=== PATIENT | female | born 1950 | race Caucasian/White ===

== ENCOUNTER → 2016-12-18 | Outpatient (CLI) | payer MEDICARE, OTHER ==
[2016-12-18 08:33] LABS: ABSOLUTE BASOPHILS # (AUTO) 0.1 10^3/uL (0.0-0.2); ABSOLUTE EOSINOPHILS # (AUTO) 0.2 10^3/uL (0.0-0.6); ABSOLUTE LYMPHOCYTES (AUTO) 3.4 10^3/uL (0.5-4.7); ABSOLUTE MONOCYTES (AUTO) 1.1 10^3/uL (0.1-1.4); ABSOLUTE NEUT (AUTO) 5.1 10^3/uL (1.7-8.2); BASOPHILS % (AUTO) 0.6 % (0-2); EOSINOPHILS % (AUTO) 1.8 % (0-6); LYMPHOCYTES % (AUTO) 34.6 % (13-45); MEAN CORPUSCULAR HEMOGLOBIN 28.6 pg (27.0-33.4); MEAN CORPUSCULAR HGB CONC 32.5 g/dL (32.0-36.0); MEAN CORPUSCULAR VOLUME 88 fl (80-97); MONOCYTES % (AUTO) 10.9 % (3-13); RED BLOOD COUNT 4.89 10^6/uL (3.72-5.28); RED CELL DISTRIBUTION WIDTH 13.3 % (11.5-14.0); SEGMENTED NEUTROPHILS % (AUTO) 52.1 % (42-78); WHITE BLOOD COUNT 9.7 10^3/uL (4.0-10.5)
[2016-12-18 08:43] LABS: ALANINE AMINOTRANSFERASE 31 U/L (9-52); ALBUMIN 4.5 g/dL (3.5-5.0); ALKALINE PHOSPHATASE 78 U/L (38-126); ANION GAP 11 (5-19); ASPARTATE AMINO TRANSFERASE 22 U/L (14-36); BILIRUBIN,TOTAL 0.5 mg/dL (0.2-1.3); BLOOD UREA NITROGEN 15 mg/dL (7-20); CALCIUM 9.6 mg/dL (8.4-10.2); CARBON DIOXIDE 29 mmol/L (22-30); CHLORIDE 102 mmol/L (98-107); CHOLESTEROL 150.53 mg/dL (0-200); CREATININE RESULT 0.88 mg/dL (0.52-1.25); Direct HDL 48 mg/dL (>40); GLUCOSE 96 mg/dL (75-110); POTASSIUM 4.5 mmol/L (3.6-5.0); SODIUM 142.1 mmol/L (137-145); TOTAL PROTEIN 7.5 g/dL (6.3-8.2); TRIGLYCERIDES 140 mg/dL (<150)
[2016-12-18 08:54] LABS: DIRECT LDL 88 mg/dL (<100); FREE T3 3.69 pg/mL (2.77-5.27)
[2016-12-18 09:07] LABS: THYROID STIMULATING HORMONE 6.7 uIU/mL (0.47-4.68)
== END ==
LOC: OD 07:32
PROVIDERS: ATTEND Family Medicine
DX: Z13.6 Encounter for screening for cardiovascular disorders (principal); Z13.1 Encounter for screening for diabetes mellitus; R73.9 Hyperglycemia, unspecified; E03.9 Hypothyroidism, unspecified; J45.40 Moderate persistent asthma, uncomplicated; E55.9 Vitamin D deficiency, unspecified; Z79.899 Other long term (current) drug therapy
CPT/HCPCS: 36415; 80048; 80061; 80076; 82306; 83036; 84439; 84443; 84481; 85025

== ENCOUNTER → 2017-01-06 | Outpatient (CLI) | payer MEDICARE, OTHER | LOC: WI 09:23 | PROVIDERS: ATTEND Family Medicine | DX: Z12.31 Encounter for screening mammogram for malignant neoplasm of breast (principal); M81.0 Age-related osteoporosis without current pathological fracture | CPT/HCPCS: 77063; 77080; G0202; 77067 ==

== ENCOUNTER 2017-02-06 06:33 | Day surgery (SDC) | payer MEDICARE, OTHER ==
[2017-02-06] MEDS ORDERED: LIDOCAINE 0.5% INJ-PF (5 MG/ML) 50 ML SDV ONE (07:10)
[2017-02-06] MEDS ORDERED: GLYCOPYRROLATE INJ 0.4 MG/2 ML VIAL ONE (07:27)
[2017-02-06] MEDS ORDERED: ONDANSETRON HCL INJ/PF 4 MG/2 ML SDV ONE (07:27)
[2017-02-06] MEDS ORDERED: NALOXONE HCL INJ/PF 0.4 MG/1 ML SDV ONE (07:27)
[2017-02-06] MEDS ORDERED: PROMETHAZINE HCL INJ 25 MG/1 ML VIAL ONE (07:27)
[2017-02-06] MEDS ORDERED: GLUCAGON,HUMAN RECOMB 1 MG INJ ONE (07:28)
[2017-02-06] MEDS ORDERED: FLUMAZENIL INJ 0.5 MG/5 ML VIAL IV ONE (07:28)
[2017-02-06] MEDS ORDERED: EPINEPHRINE INJ 1 MG/10 ML DISP.SYRIN ONE (07:28)
[2017-02-06] MEDS: MIDAZOLAM 2 MG/2 ML INJ ONE ×4 (07:44→08:10)
[2017-02-06] MEDS: FENTANYL CITRATE INJ/PF 100 MCG/2 ML AMPUL ONE ×5 (07:46→08:18)
--- NOTE | 2017-02-06 08:34 | Operative Report ---
Operative Report DATE OF SURGERY: 02/06/17 PREOPERATIVE DIAGNOSIS: Need for screening colonoscopy POSTOPERATIVE DIAGNOSIS: Same; sigmoid diverticulosis OPERATION: Total colonoscopy to cecum SURGEON: LISBET SOLARES ANESTHESIA: Moderate Sedation TISSUE REMOVED OR ALTERED: None COMPLICATIONS: None ESTIMATED BLOOD LOSS: none INTRAOPERATIVE FINDINGS: See below PROCEDURE: Obtaining informed consent the patient was taken from the preoperative holding area to the main endoscopy suite where monitoring devices were attached to the patient. Plan and surgical timeout were conducted The patient was placed in the left lateral decubitus position with knees to chest. A perianal examination was performed. There was no visible or palpable anorectal pathology. Sphincter tone was felt to be normal. The flexible adult colonoscope was advanced through the anal rectal canal, but could not be advanced beyond the sigmoid colon due to significant curvature of the colon. Therefore the scope was removed to surgery; with much manipulation, we were able to advance the scope all the way to the cecum. Utilization of the cecum was achieved and the ileocecal valve, the appendiceal orifice and transillumination of the anterior abdominal wall. This was an excellent study on the well-prepped bowel. The colonoscope was withdrawn slowly and methodically checked and the mucosa carefully. There was no evidence of tumor, stricture, bleeding or polyp. There were diverticuloses in the sigmoid colon but no stricture. It was minimal bruising secondary to scope pressure but no evidence of mucosal injury. The scope was slowly withdrawn through the anal rectal canal. Complete visualization of the rectum was achieved with photodocumentation. The scope was withdrawn to the patient's anus. The patient tolerated the procedure well and was taken to the recovery area in stable condition. For surveillance guidelines, patient will be a candidate for a follow-up colonoscopy in 10 years as she is at average risk for colorectal cancer
--- NOTE | 2017-02-06 08:35 | PDOC DISCHARGE SUMMARY ---
Discharge Summary (SDC) - Discharge Final Diagnosis: Sigmoid diverticulosis Date of Surgery: 02/06/17 Discharge Date: 02/06/17 Condition: Good Treatment or Instructions: [facility] [place] [address] POST ENDOSCOPY DISCHARGE INSTRUCTIONS 1. Diet: Start clear liquids that a regular diet as tolerated. 2. Resume all preoperative medications. All oral anticoagulants and aspirins can be resumed 24 hours after procedure. 3. If a polypectomy was performed some bleeding per rectum may occur. This should stop within 3 days. If not, please contact the office. 4. If you had a colonoscopy you may experience some bloating and delayed return of normal bowel function for several days, your regular bowel movement pattern should resume within a week. 5. Please contact [facility] at to make an appointment with Dr. Weldon for 1 to 3 weeks following procedure. 6. If you have any questions or concerns regarding your care,treatment plan or follow up, please contact our office. 7. Per clinical guidelines we recommend you undergo a repeat colonoscopy in 10 years. Discharge Diet: As Tolerated Discharge Activity: Activity As Tolerated Home Care Assistance: None Needed Report the Following to Your Physician Immediately: Shortness of Breath, Increase in Pain, Fever over 101 Degrees
[2017-02-06 09:43] VITALS: BP 113/89
== END 2017-02-06 09:35 | disposition home or self-care (01) ==
LOC: END 06:33
PROVIDERS: ATTEND Surgery
PROC: 0DJD8ZZ Inspection of Lower Intestinal Tract, Via Natural or Artificial Opening Endoscopic (ICD-10-PCS; principal; 2017-02-06 07:30)
DX: Z12.11 Encounter for screening for malignant neoplasm of colon (principal); K57.30 Diverticulosis of large intestine without perforation or abscess without bleeding; E78.00 Pure hypercholesterolemia, unspecified; E03.9 Hypothyroidism, unspecified; F17.210 Nicotine dependence, cigarettes, uncomplicated; Z79.899 Other long term (current) drug therapy; Z88.5 Allergy status to narcotic agent; Z79.82 Long term (current) use of aspirin; Z79.51 Long term (current) use of inhaled steroids
CPT/HCPCS: G0121; J2250; J3010; J3490; J2405; 45378; J0171; J1610; J2310; J2550

== ENCOUNTER → 2017-03-18 | Outpatient (CLI) | payer MEDICARE, OTHER ==
--- NOTE | 2017-03-18 12:51 | XCELERA REPORT ---
[address] [address] Lower Extremity Arterial Evaluation Name: KAMARI MENDOZA Age: 66 yrs Gender: Female : 1950 Patient Status: Outpatient Patient Location: Study Date: 03/18/2017 10:10 AM Procedure: A color flow and duplex scan of the lower extremity arteries was performed bilaterally with velocity and waveform anaylsis. Reason For Study: PVD Ordering Physician: REYNA MACHADO Performed By: Latonya Gomez Measurements and Calculations Right Left SUSTAINABILITY SPECIALIST PSV 135.1 98.1 cm/sec Prox PFA PSV -73.9 -137.6 cm/sec Prox SFA PSV -111.3 94.3 cm/sec Mid SFA PSV -87.7 -96.4 cm/sec Dist SFA PSV -88.6 -111.0 cm/sec Prox Pop A PSV 55.9 64.5 cm/sec Prox JANES PSV 45.4 108.6 cm/sec Mid JANES PSV -33.9 80.0 cm/sec Dist JANES PSV 100.4 cm/sec Prox PASSENGER RELATIONS REPRESENTATIVE PSV 40.7 35.2 cm/sec Dist PASSENGER RELATIONS REPRESENTATIVE PSV 27.4 cm/sec Dist Madelaine A PSV 48.3 59.7 cm/sec Chilango Pedis PSV 157.2 84.9 cm/sec Right Side Arterial Evaluation Normal velocity and triphasic waveforms noted from the Common Femoral artery to the Popliteal artery . Monophasic in the distal Posterior Tibial artery. Occluded Anterior Tibial artery with triphasic reconstitution in the Dorsalis Pedis artery. 50-99 % stenosis at the Posterior Tibial artery. Ankle Brachial index is 1.08. Left Side Arterial Evaluation Normal velocity and triphasic waveforms noted from the Common Femoral artery to the Popliteal artery . Monophasic in the mid Posterior Tibial artery, occluded distally. Biphasic Anterior tibial artery. 20-49 % stenosis at the Anterior Tibial artery. Occluded Posterior Tibial artery. Ankle Brachial index is 1.08. Interpretation Summary Moderate hemodynamically significant lesions in the bilateral lower extremities, on duplex imaging, at rest. Unusual pattern with functional problems at the infrageniculate level, good collateral compensation. : REYNA MACHADO > Justen Jane
== END ==
LOC: SP 09:46
PROVIDERS: ATTEND Family Medicine
DX: I73.9 Peripheral vascular disease, unspecified (principal); E03.9 Hypothyroidism, unspecified; E55.9 Vitamin D deficiency, unspecified
CPT/HCPCS: 36415; 82306; 84443; 93925

== ENCOUNTER → 2017-04-04 | Outpatient (CLI) | payer MEDICARE, OTHER | LOC: RAD 10:23 | PROVIDERS: ATTEND Family Medicine | DX: F17.210 Nicotine dependence, cigarettes, uncomplicated (principal) | CPT/HCPCS: G0297 ==

== ENCOUNTER 2017-05-08 08:28 | Day surgery (SDC) | payer MEDICARE, OTHER ==
[~2017-05-08 08:28] MED LIST: NALOXONE HCL INJ/PF 0.4 MG/1 ML SDV ONE; ONDANSETRON HCL INJ/PF 4 MG/2 ML SDV ONE
[2017-05-08] MEDS ORDERED: EPINEPHRINE INJ 1 MG/10 ML DISP.SYRIN ONE ×2 (08:29→09:23)
[2017-05-08] MEDS ORDERED: GLUCAGON,HUMAN RECOMB 1 MG INJ ONE ×2 (08:29→09:23)
[2017-05-08] MEDS ORDERED: FLUMAZENIL INJ 0.5 MG/5 ML VIAL IV ONE ×2 (08:29→09:22)
[2017-05-08] MEDS ORDERED: MIDAZOLAM 2 MG/2 ML INJ ONE ×2 (08:29)
[2017-05-08] MEDS ORDERED: FENTANYL CITRATE INJ/PF 100 MCG/2 ML AMPUL ONE ×2 (08:29→09:22)
[2017-05-08] MEDS ORDERED: LIDOCAINE 1% INJ-PF (10 MG/ML) 30 ML SDV ONE (09:12)
[2017-05-08] MEDS ORDERED: DIPHENHYDRAMINE HCL 50 MG/ML VIAL ONE (09:19)
[2017-05-08] MEDS ORDERED: ONDANSETRON HCL INJ/PF 4 MG/2 ML SDV ONE (09:20)
[2017-05-08] MEDS ORDERED: NALOXONE HCL INJ/PF 0.4 MG/1 ML SDV ONE (09:20)
[2017-05-08] MEDS: MIDAZOLAM 2 MG/2 ML INJ ONE ×2 (10:05→10:15)
--- NOTE | 2017-05-08 10:29 | Operative Report ---
Operative Report DATE OF SURGERY: 05/08/17 PREOPERATIVE DIAGNOSIS: Dysphasia; heartburn POSTOPERATIVE DIAGNOSIS: Same; mild chronic gastritis: Small hiatal hernia OPERATION: 1. Esophagogastroduodenoscopy. 2. Mucosal biopsies of the gastric antrum, and GE junction SURGEON: LISBET SOLARES ANESTHESIA: Moderate Sedation TISSUE REMOVED OR ALTERED: Mucosa biopsy COMPLICATIONS: None ESTIMATED BLOOD LOSS: Scant INTRAOPERATIVE FINDINGS: See below PROCEDURE: Source taken from the preop holding area on the fifth floor at [facility] to the main endoscopy suite where she is placed in the semirecumbent position, or mouthpiece inserted monitoring devices attached an appropriate level of sedation induced. Surgical plan and surgical timeout conducted. The flexible adult upper endoscope was advanced through the hypopharynx down the esophagus through the stomach into the duodenum. Well tolerated by the patient. The duodenum was normal in the first and second portions. Scope was brought back through the pylorus which was essentially normal. No evidence of stricture or irregularity. The stomach lining was patent and whitish in areas consistent with chronic gastritis, mild. There was no evidence of tumor stricture bleeding retained gastric contents. A random biopsy of the gastric antrum was obtained for CAMI testing The scope was retroflexed in the stomach and a good look at the GE junction obtained. There was a small hiatal hernia. Photos obtained. The scope was brought back through in a antegrade fashion through the GE junction which is at approximately 36 cm from the incisor. Photos were taken of the Z line which had only mild irregularity. A biopsy of the Z line was obtained. This was sent for histology. There was no evidence of stricture ulcer or varix or any other pathology in the esophagus scope was withdrawn to patient's oropharynx. She tolerated the procedure well.
--- NOTE | 2017-05-08 10:30 | PDOC DISCHARGE SUMMARY ---
Discharge Summary (SDC) - Discharge Final Diagnosis: 1. Mild chronic gastritis 2 small hiatal hernia Date of Surgery: 05/08/17 Discharge Date: 05/08/17 Condition: Good Treatment or Instructions: [facility] [address] [address] POST ENDOSCOPY DISCHARGE INSTRUCTIONS 1. Diet: Start clear liquids that a regular diet as tolerated. 2. Resume all preoperative medications. All oral anticoagulants and aspirins can be resumed 24 hours after procedure. 3. If a polypectomy was performed some bleeding per rectum may occur. This should stop within 3 days. If not, please contact the office. 4. If you had a colonoscopy you may experience some bloating and delayed return of normal bowel function for several days, your regular bowel movement pattern should resume within a week. 5. Please contact [facility] at to make an appointment with Dr. Weldon for 1 to 3 weeks following procedure. 6. If you have any questions or concerns regarding your care,treatment plan or follow up, please contact our office. Discharge Diet: As Tolerated Discharge Activity: Activity As Tolerated Home Care Assistance: None Needed Report the Following to Your Physician Immediately: Shortness of Breath, Increase in Pain, Fever over 101 Degrees
[2017-05-08 11:34] VITALS: BP 104/65
== END 2017-05-08 11:30 | disposition home or self-care (01) ==
LOC: END 08:28
PROVIDERS: ATTEND Surgery
PROC: 0DB38ZX Excision of Lower Esophagus, Via Natural or Artificial Opening Endoscopic, Diagnostic (ICD-10-PCS; 2017-05-08)
PROC: 0DB68ZX Excision of Stomach, Via Natural or Artificial Opening Endoscopic, Diagnostic (ICD-10-PCS; principal; 2017-05-08 09:00)
DX: K29.50 Unspecified chronic gastritis without bleeding (principal); K44.9 Diaphragmatic hernia without obstruction or gangrene; K21.9 Gastro-esophageal reflux disease without esophagitis; Z80.0 Family history of malignant neoplasm of digestive organs; E78.00 Pure hypercholesterolemia, unspecified; E03.9 Hypothyroidism, unspecified; F17.210 Nicotine dependence, cigarettes, uncomplicated; Z88.5 Allergy status to narcotic agent; Z79.899 Other long term (current) drug therapy
CPT/HCPCS: 43239; 88342 ×2; 88305 ×2; J2250; J3010; J3490; J0171; J1200; J1610; J2310; J2405

== ENCOUNTER → 2017-06-07 | Outpatient (CLI) | payer MEDICARE, OTHER ==
--- NOTE | 2017-06-07 09:46 | RADIOLOGY REPORT (SQ) ---
EXAM DESCRIPTION: MRI LUMBAR SPINE WITHOUT COMPLETED DATE/TIME: 06/07/2017 9:17 am REASON FOR STUDY: RADICULOPATHY LUMBAR REGION M54.16 RADICULOPATHY, LUMBAR REGION COMPARISON: 2016. Radiographs from today. TECHNIQUE: Sagittal and Axial imaging includes T1, T2, STIR and gradient echo sequences. Coronal T2/ HASTE imaging. LIMITATIONS: None. FINDINGS: VISUALIZED UPPER ABDOMEN: No acute or suspicious findings appreciated. Focal ectasia of t he infrarenal aorta, slight aneurysm which measures 2.5 cm maximally. SEGMENTATION: No transitional anatomy. The lowest well-developed disc space is labeled L5-S1. ALIGNMENT: Anatomic. VERTEBRAE: Intact. BONE MARROW: Endplate edema at L4-5. No marrow replacement or suspicious bone lesion. Fatty endplat e changes at several other levels. DISC SIGNAL: Decreased signal and height at L4-5 and L5-S1. Otherwise decreased signal throughout. POSTERIOR ELEMENTS: No pars defect. Facet degenerative overgrowth. HARDWARE: None in the spine. CORD AND CONUS: Normal in size and signal intensity. Conus at the appropriate level. SOFT TISSUES: As above. No retroperitoneal adenopathy detected. No paraspinal mass or fluid. L1-L2: No significant spinal stenosis or exit foraminal stenosis. L2-L3: No significant spinal stenosis or exit foraminal stenosis. L3-L4: Bilateral noncritical foraminal narrowing. L4-L5: Disc bulge with superimposed broad central protrusion flattening the ventral thecal sac. Post erior element overgrowth. Moderate central narrowing. Moderate-marked left foraminal stenosis. L5-S1: Broad disc bulge with mild osteophytes. Mild right lateral recess stenosis. LOWER THORACIC: Spondylosis without cord compression. Limited assessment. SACRUM: Visualized upper sacrum intact. OTHER: No other significant findings. IMPRESSION: 1. Multilevel lumbar spondylosis, disc and facet disease as above. Most pronounced at t he L4-5 level where there is moderate central narrowing and reactive endplate edema. No fracture or worrisome bone lesion. TECHNICAL DOCUMENTATION: JOB ID: [id number] [employer]- All Rights Reserved
--- NOTE | 2017-06-07 09:47 | RADIOLOGY REPORT (SQ) ---
EXAM DESCRIPTION: L SPINE 2 VIEWS COMPLETED DATE/TIME: 06/07/2017 9:17 am REASON FOR STUDY: SPONDYLOLISTHESIS COMPARISON: MRI from today. FINDINGS: Two views, 3 images of the lumbar spine are obtained for correlation with MRI to day. See separate MRI report. Mild complex left curve in the spine. Alignment otherwise looks normal. TECHNICAL DOCUMENTATION: JOB ID: [id number]
== END ==
LOC: RAD 08:22
PROVIDERS: ATTEND Family Medicine
DX: M54.16 Radiculopathy, lumbar region (principal); M43.16 Spondylolisthesis, lumbar region
CPT/HCPCS: 72100; 72148

== ENCOUNTER → 2017-07-24 | Outpatient (CLI) | payer MEDICARE, OTHER ==
--- NOTE | 2017-07-24 10:18 | RADIOLOGY REPORT (SQ) ---
EXAM DESCRIPTION: WRIST RIGHT 3 VIEWS COMPLETED DATE/TIME: 07/24/2017 9:50 am REASON FOR STUDY: PAIN IN RIGHT WRIST (M25.531) M25.531 PAIN IN RIGHT WRIST COMPARISON: None. NUMBER OF VIEWS: Three views. TECHNIQUE: AP, lateral, and oblique radiographic images acquired of the right wrist. LIMITATIONS: None. FINDINGS: MINERALIZATION: Osteopenia. BONES: No acute fracture dislocation. The scaphoid has been resected. SOFT TISSUES: No soft tissue swelling. No foreign body. OTHER: No other significant finding. IMPRESSION: The scaphoid is been resected. No acute abnormality is seen in the wrist. TECHNICAL DOCUMENTATION: JOB ID: [id number] [employer]- All Rights Reserved
== END ==
LOC: RAD 08:43
PROVIDERS: ATTEND Family Medicine
DX: M25.531 Pain in right wrist (principal)

== ENCOUNTER → 2018-01-12 | Outpatient (CLI) | payer MEDICARE, OTHER ==
--- NOTE | 2018-01-13 09:15 | WOMENS IMAGING REPORT ---
EXAM DESCRIPTION: 3D SCREENING MAMMO BILAT COMPLETED DATE/TIME: 01/12/2018 2:11 pm REASON FOR STUDY: ROUTINE SCREENING; Z12.31 Z12.31 ENCNTR SCREEN MAMMOGRAM FOR MALIGNANT NEOPLASM O F NISREEN COMPARISON: 2011 to 2016 TECHNIQUE: Standard craniocaudal and mediolateral oblique views of each breast recorded using digita l acquisition and breast tomosynthesis. LIMITATIONS: None. FINDINGS: No masses, calcifications or architectural distortion. No areas of suspicion. Read with the assistance of CAD. .[facility] - R2 Cenova Version 1.3 .[facility] - R2 Cenova Version 1.3 .[facility] - R2 Cenova Version 2.4 .[facility] [place] R2 Cenova Version 2.4 .[facility] - R2 Physician Interventional Cardiologist Version 9.2 IMPRESSION: NORMAL MAMMOGRAM. BIRADS 1. BREAST DENSITY: a. The breasts are almost entirely fatty. BIRAD: 1 NEGATIVE RECOMMENDATION: ROUTINE SCREENING COMMENT: The patient has been notified of the results by letter per SA requirements. Additional no tification policies are in place for contacting patient with suspicious or incomplete findings. Quality ID #[id number]: The [employer] recommends an annual screening mammogram for women aged 40 years or over. This facility utilizes a reminder system to ensure that all patients receive reminder letters, and/or direct phone calls for appointments. This includes reminders for routine scr eening mammograms, diagnostic mammograms, or other Breast Imaging Interventions when appropriate. Th is patient will be placed in the appropriate reminder system. The [employer] (ACR) has developed recommendations for screening MRI of the breast s in certain patient populations, to be used in conjunction with mammography. Breast MRI surveillanc e may be appropriate for women with more than 20% lifetime risk of developing breast cancer as deter mined by genetic testing, significant family history of the disease, or history of mantle radiation f or Hodgkins Disease. ACR Practice Guidelines 2008. DBT Technology DBT is a type of tomographic mammography. With conventional mammography, overlapping breast tissue ma y make lesions difficult to detect, even with good compression. DBT uses an x-ray tube that rotates a round the breast, taking images at different angles. These images are then combined to create thin sl ices of the breast that the radiologist can view as a 3D reconstruction. The [employer] unit can perform full-field digital mammograms (2D imaging); or DBT (3D imaging); or both, in a combination mode that quickly performs both the mammogram and the tomosynthesis scan while the breast is still compressed. PQRS 6045F: Fluoroscopic imaging is not utilized for breast tomosynthesis. TECHNICAL DOCUMENTATION: FINDING NUMBER: (1) ASSESSMENT: (1) JOB ID: [id number] [employer]- All Rights Reserved
== END ==
LOC: WI 14:00
PROVIDERS: ATTEND Family Medicine
DX: Z12.31 Encounter for screening mammogram for malignant neoplasm of breast (principal)
CPT/HCPCS: 77063; 77067

== ENCOUNTER → 2018-03-27 | Outpatient (CLI) | payer MEDICARE, OTHER ==
--- NOTE | 2018-03-27 08:34 | RADIOLOGY REPORT (SQ) ---
EXAM DESCRIPTION: MRI RT LOWER JOINT WITHOUT COMPLETED DATE/TIME: 03/27/2018 7:59 am REASON FOR STUDY: CHRONIC INSTABILITY OF KNEE, RIGHT (M23.51) M23.51 CHRONIC INSTABILITY OF KNEE, R IGHT KNEE COMPARISON: None. TECHNIQUE: Rightknee images acquired and stored on PACS. Multiplanar images include fat sensitive s equences as T1, water sensitive sequences as FST2 or STIR, cartilage sensitive sequences as FSPD, and gradient echo sequences. LIMITATIONS: None. FINDINGS: JOINT AND BURSAE: No effusion. BONE CORTEX AND MARROW: No alteration of signal to suggest marrow replacement. No worrisome bone lesi ons. No occult fracture. ACL: Intact. No degeneration or ganglion cyst. PCL: The proximal half of the posterior cruciate ligament is diffusely thickened and high in signal, is torn at its proximal attachment along the femur. This is best shown on sagittal image 12 and linda nal images 12 through 19. MCL: Intact. No periligamentous edema or fluid. LCL: Intact. No periligamentous edema or fluid. MEDIAL MENISCUS: No tears. No abnormal signal. LATERAL MENISCUS: No tears. No abnormal signal. MEDIAL COMPARTMENT: Cartilage preserved. No bone bruises or reactive marrow edema. No osteophytes. LATERAL COMPARTMENT: Cartilage preserved. No bone bruises or reactive marrow edema. No osteophytes. PATELLA: There is diffuse high-grade patellar chondromalacia. No subchondral cysts. Medial and latera l retinacula intact. EXTENSOR MECHANISM: Intact. Quadriceps and patella tendons normal. SOFT TISSUES: Adjacent muscles and subcutaneous tissues normal. Normal flow void in popliteal artery and vein. OTHER: No other significant finding. IMPRESSION: Torn proximal attachment posterior cruciate ligament High-grade chondromalacia patella TECHNICAL DOCUMENTATION: JOB ID: [id number] [employer]- All Rights Reserved Reading location - IP/workstation name: [facility]-[email or web address]
== END ==
LOC: RAD 07:05
PROVIDERS: ATTEND Family Medicine
DX: M23.51 Chronic instability of knee, right knee (principal); M22.41 Chondromalacia patellae, right knee

== ENCOUNTER → 2018-04-06 | Outpatient (CLI) | payer MEDICARE, OTHER ==
[2018-04-06 09:21] LABS: ABSOLUTE EOSINOPHILS # (AUTO) 0.1 10^3/uL (0.0-0.6); ABSOLUTE LYMPHOCYTES (AUTO) 3.3 10^3/uL (0.5-4.7); ABSOLUTE MONOCYTES (AUTO) 0.7 10^3/uL (0.1-1.4); ABSOLUTE NEUT (AUTO) 4.7 10^3/uL (1.7-8.2); BASOPHILS % (AUTO) 0.5 % (0-2); EOSINOPHILS % (AUTO) 1.4 % (0-6); HEMATOCRIT 42.1 % (36.0-47.0); HEMOGLOBIN 14.1 g/dL (12.0-15.5); LYMPHOCYTES % (AUTO) 37.2 % (13-45); MEAN CORPUSCULAR HEMOGLOBIN 29.7 pg (27.0-33.4); MEAN CORPUSCULAR HGB CONC 33.5 g/dL (32.0-36.0); MEAN CORPUSCULAR VOLUME 89 fl (80-97); MONOCYTES % (AUTO) 8.3 % (3-13); PLATELET COUNT 253 10^3/uL (150-450); RED BLOOD COUNT 4.76 10^6/uL (3.72-5.28); RED CELL DISTRIBUTION WIDTH 13.7 % (11.5-14.0); SEGMENTED NEUTROPHILS % (AUTO) 52.6 % (42-78); TOTAL CELLS COUNTED % (AUTO) 100 %; WHITE BLOOD COUNT 8.9 10^3/uL (4.0-10.5)
[2018-04-06 09:52] LABS: ALANINE AMINOTRANSFERASE 30 U/L (9-52); ALBUMIN 4.2 g/dL (3.5-5.0); ALKALINE PHOSPHATASE 71 U/L (38-126); ANION GAP 10 (5-19); ASPARTATE AMINO TRANSFERASE 22 U/L (14-36); BILIRUBIN,DIRECT 0.3 mg/dL (0.0-0.4); BILIRUBIN,TOTAL 0.3 mg/dL (0.2-1.3); BLOOD UREA NITROGEN 18 mg/dL (7-20); CALCIUM 9.5 mg/dL (8.4-10.2); CARBON DIOXIDE 29 mmol/L (22-30); CHLORIDE 106 mmol/L (98-107); CHOLESTEROL 136.71 mg/dL (0-200); GLUCOSE 100 mg/dL (75-110); POTASSIUM 4.3 mmol/L (3.6-5.0); TOTAL PROTEIN 7.2 g/dL (6.3-8.2); TRIGLYCERIDES 138 mg/dL (<150)
[2018-04-06 10:04] LABS: DIRECT LDL 70 mg/dL (<100)
[2018-04-06 10:09] LABS: FREE T3 3.33 pg/mL (2.77-5.27); FREE T4 (FREE THYROXINE) 1.17 ng/dL (0.78-2.19)
[2018-04-06 10:22] LABS: THYROID STIMULATING HORMONE 1.5 uIU/mL (0.47-4.68)
[2018-04-07 07:42] LABS: HEPATITIS C VIRUS AB <0.1 s/co ratio (0.0-0.9)
== END ==
LOC: OD 08:14
PROVIDERS: ATTEND Family Medicine
DX: L68.0 Hirsutism (principal); R73.9 Hyperglycemia, unspecified; E78.5 Hyperlipidemia, unspecified; E03.9 Hypothyroidism, unspecified; Z11.59 Encounter for screening for other viral diseases; E55.9 Vitamin D deficiency, unspecified; Z79.899 Other long term (current) drug therapy; M62.838 Other muscle spasm
CPT/HCPCS: 36415; 80053; 80061; 82306; 82533; 82627; 83036; 83735; 84403; 84439; 84443; 84481; 85025; 86803; 86804

== ENCOUNTER → 2018-04-06 | Outpatient (CLI) | payer MEDICARE, OTHER ==
--- NOTE | 2018-04-06 16:54 | RADIOLOGY REPORT (SQ) ---
EXAM DESCRIPTION: CT LUNG CANCER SCREENING COMPLETED DATE/TIME: 04/06/2018 9:38 am REASON FOR STUDY: Z87.891 PERSONAL HISTORY OF NICOTINE DEPENDENCE Z87.891 PERSONAL HISTORY OF NICOT INE DEPENDENCE Has the patient had a Chest CT scan within the past year? Was the patient offered tobacco cessation counseling? Was the patient engaged in shared decision making for this test? Does the patient have signs or symptoms of Lung Cancer? Is the patient a smoker? How many packs per year? How many years since quitting smoking? Patients age: COMPARISON: None. TECHNIQUE: Low Dose CT scan performed of the chest without intravenous contrast for purposes of scre ening for lung cancer. Images reviewed with lung, soft tissue and bone windows. Reconstructed coron al and sagittal MPR images reviewed. All images stored on PACS. All CT scanners at this facility use dose modulation, iterative reconstruction, and/or weight based d osing when appropriate to reduce radiation dose to as low as reasonably achievable (ALARA). [facility]: Dose Right [facility]: CareDose [facility]: Dose Right [facility]: Teradose 4D [facility]: CardioDx RADIATION DOSE: mGy. . LIMITATIONS: No technical limitations. FINDINGS: LUNGS AND PLEURA: No masses or nodules. No pleural effusions or calcifications. No pne umothorax. Small area of opacity left lower lobe with tree-in-bud appearance. This suggests inflam mation/infection. HILAR AND MEDIASTINAL STRUCTURES: No identified masses. No abnormal nodes. HEART AND VASCULAR STRUCTURES: No aortic aneurysm. No pericardial effusion. No cardiac devices. CORONARY ARTERY CALCIFICATIONS: No significant calcifications. UPPER ABDOMEN: No significant findings. THYROID AND OTHER SOFT TISSUES: No masses. No adenopathy. BONES: No significant finding. OTHER: No other significant findings. IMPRESSION: PROBABLY BENIGN FINDINGS IN THE LUNGS. NO OTHER CLINICALLY SIGNIFICANT/POTENTIALLY CLINICALLY SIGNIFICANT FINDINGS LUNGRADS: LUNGRADS: 3, PROBABLY BENIGN. PROBABLY BENIGN FINDING(S)- SHORT TERM FOLLOW UP SUGGESTED; INCLUDES NODULES WITH A LOW LIKELIHOOD OF BECOMING A CLINICALLY ACTIVE CANCER. MODIFIER: NONE. RECOMMENDATION: Followup LDCT in 3 months. COMMENT: CRITERIA: Solid nodule(s): ? 6 mm to < 8 mm at baseline OR new 4 mm to < 6 mm. Part solid nodule(s): ? 6 mm total diameter with solid component < 6 mm OR new < 6 mm total diameter . Non solid nodule(s) (GGN): ? [address] or new. TECHNICAL DOCUMENTATION: JOB ID: [id number] Quality ID # [id number]: Final reports with documentation of one or more dose reduction techniques (e.g., Au tomated exposure control, adjustment of the mA and/or kV according to patient size, use of iterative reconstruction technique) 2010 [facility] Radiology Reading location - IP/workstation name: [email or web address] [id number]
== END ==
LOC: RAD 10:11
PROVIDERS: ATTEND Internal Medicine
DX: Z87.891 Personal history of nicotine dependence (principal)
CPT/HCPCS: G0297

== ENCOUNTER → 2018-05-15 | Outpatient (CLI) | payer MEDICARE, OTHER ==
--- NOTE | 2018-05-15 14:44 | RADIOLOGY REPORT (SQ) ---
EXAM DESCRIPTION: ANKLE RIGHT COMPLETE COMPLETED DATE/TIME: 05/15/2018 2:35 pm REASON FOR STUDY: M25.571 PAIN IN RIGHT ANKLE AND JOINTS OF RIGHT FOOT COMPARISON: None. NUMBER OF VIEWS: Three views. TECHNIQUE: AP, lateral, and oblique radiographic images acquired of the right ankle. LIMITATIONS: None. FINDINGS: MINERALIZATION: Normal. BONES: Calcaneal spurs. Hold tibial fracture. No acute fracture or dislocation. JOINTS: No effusions. SOFT TISSUES: No soft tissue swelling. No foreign body. OTHER: No other significant finding. IMPRESSION: Calcaneal spurs. Old tibial fracture. No acute abnormality. TECHNICAL DOCUMENTATION: JOB ID: [id number] [employer]- All Rights Reserved Reading location - IP/workstation name: [email or web address]
--- NOTE | 2018-05-15 14:48 | RADIOLOGY REPORT (SQ) ---
EXAM DESCRIPTION: FOOT RIGHT COMPLETE COMPLETED DATE/TIME: 05/15/2018 2:35 pm REASON FOR STUDY: M25.571 PAIN IN RIGHT ANKLE AND JOINTS OF RIGHT FOOT COMPARISON: None. NUMBER OF VIEWS: Three views. TECHNIQUE: AP, lateral and oblique radiographic images acquired of the right foot. LIMITATIONS: None. FINDINGS: MINERALIZATION: Normal. BONES: Calcaneal spurs. No acute fracture or dislocation. JOINTS: No effusions. SOFT TISSUES: No soft tissue swelling. No foreign body. OTHER: No other significant finding. IMPRESSION: Calcaneal spurs. No acute abnormality. TECHNICAL DOCUMENTATION: JOB ID: [id number] [employer]- All Rights Reserved Reading location - IP/workstation name: [email or web address]
== END ==
LOC: OD 14:15
PROVIDERS: ATTEND Family Medicine
DX: M25.571 Pain in right ankle and joints of right foot (principal)

== ENCOUNTER 2018-05-27 15:50 | Emergency (ER) | payer MEDICARE, OTHER ==
[2018-05-27 16:17] VITALS: BP 111/70
--- NOTE | 2018-05-27 17:31 | RADIOLOGY REPORT (SQ) ---
EXAM DESCRIPTION: FOOT RIGHT COMPLETE COMPLETED DATE/TIME: 05/27/2018 5:21 pm REASON FOR STUDY: multiple injuries and pain COMPARISON: 05/15/2018 NUMBER OF VIEWS: Three views. TECHNIQUE: AP, lateral and oblique radiographic images acquired of the right foot. LIMITATIONS: None. FINDINGS: MINERALIZATION: Normal. BONES: No acute fracture or dislocation. No worrisome bone lesions. JOINTS: No effusions. SOFT TISSUES: No soft tissue swelling. No foreign body. OTHER: No other significant finding. IMPRESSION: NEGATIVE STUDY OF THE RIGHT FOOT. NO RADIOGRAPHIC EVIDENCE OF ACUTE INJURY. TECHNICAL DOCUMENTATION: JOB ID: [id number] [employer]- All Rights Reserved Reading location - IP/workstation name: [email or web address]
--- NOTE | 2018-05-27 17:32 | RADIOLOGY REPORT (SQ) ---
EXAM DESCRIPTION: ANKLE RIGHT COMPLETE COMPLETED DATE/TIME: 05/27/2018 5:21 pm REASON FOR STUDY: multiple injuries and pain COMPARISON: None. NUMBER OF VIEWS: Three views. TECHNIQUE: AP, lateral, and oblique radiographic images acquired of the right ankle. LIMITATIONS: None. FINDINGS: MINERALIZATION: Normal. BONES: No acute fracture or dislocation. No worrisome bone lesions. JOINTS: No effusions. SOFT TISSUES: No soft tissue swelling. No foreign body. OTHER: No other significant finding. IMPRESSION: NEGATIVE STUDY OF THE RIGHT ANKLE. NO RADIOGRAPHIC EVIDENCE OF ACUTE INJURY. TECHNICAL DOCUMENTATION: JOB ID: [id number] [employer]- All Rights Reserved Reading location - IP/workstation name: [email or web address]
--- NOTE | 2018-05-27 17:32 | RADIOLOGY REPORT (SQ) ---
EXAM DESCRIPTION: TIBIA FIBULA RIGHT COMPLETED DATE/TIME: 05/27/2018 5:21 pm REASON FOR STUDY: multiple injuries and pain COMPARISON: None. NUMBER OF VIEWS: Two views. TECHNIQUE: Two radiographic images acquired of the right tibia and fibula to include the knee and an kle in at least one projection. LIMITATIONS: None. FINDINGS: MINERALIZATION: Normal. BONES: No acute fracture or dislocation. No worrisome bone lesions. Old posttraumatic changes of th e tibia. SOFT TISSUES: No obvious swelling or foreign body. OTHER: No other significant finding. IMPRESSION: NEGATIVE STUDY OF THE RIGHT TIBIA AND FIBULA. NO RADIOGRAPHIC EVIDENCE OF ACUTE INJURY. TECHNICAL DOCUMENTATION: JOB ID: [id number] [employer]- All Rights Reserved Reading location - IP/workstation name: [email or web address]
--- NOTE | 2018-05-27 17:41 | ER Document Report ---
ED Extremity Problem, Lower - General Chief Complaint: Ankle Pain Stated Complaint: FOOT/ANKLE PAIN Time Seen by Provider: 05/27/18 17:00 Mode of Arrival: Wheelchair Information source: Patient Notes: 67-year-old female presented ED for complaint of pain swelling and bruising to the right foot ankle and lower leg. She states 2 weeks ago she had pain in her right foot and had a x-ray and it was negative. States a week ago she was trying to climb a ladder and slipped injuring her leg and then it was several days before she could walk on the foot. Today she states she turned her ankle but she is not sure exactly what she did but she felt a snap in the ankle and the pain is been progressively worse all day. She states she stood and she almost fell. She cannot bear any weight on this foot or ankle and she knows it is broken. Patient is alert and oriented speaking in full sentences and respirations are regular and unlabored. TRAVEL OUTSIDE OF THE [place] IN LAST 30 DAYS: No - HPI Patient complains to provider of: Injury, Pain, Swelling Location: Ankle, Foot, Leg Occurred: Other - First pain was 2 weeks ago then injured a week ago and then today she stepped wrong on it and thinks she turned Where: Home Onset/Duration: Gradual Quality of pain: Sharp, Throbbing Severity: Moderate Pain Level: 4 Context: Fell, Twisted Recent injury: Yes Associated symptoms: Painful ambulation Exacerbated by: Hanging down, Movement, Walking Relieved by: Elevation, Ice, Rest - Related Data Allergies/Adverse Reactions: alendronate sodium [From Fosamax] Allergy (Severe, Verified 05/27/18 15:52) CHEST PAIN, PALPITATION pentazocine lactate [From Talwin] Allergy (Unknown, Verified 05/27/18 15:52) codeine [Codeine] Allergy (Verified 05/27/18 15:52) HEADACHE Past Medical History - General Information source: Patient - Social History Smoking Status: Never Smoker Cigarette use (# per day): No Chew tobacco use (# tins/day): No Smoking Education Provided: No - Has to go to your heart since late abdominal stickers degenerative take the Frequency of alcohol use: None Drug Abuse: None Lives with: Family Family History: Reviewed & Not Pertinent Patient has suicidal ideation: No Patient has homicidal ideation: No - Past Medical History Cardiac Medical History: Reports: Hx Coronary Artery Disease - STRESS TEST 2016 - REPORTS NORMAL FINDINGS, Hx Hypercholesterolemia, Hx Peripheral Vascular Disease - Patient had left carotid endarterectomy and continues to smoke heavily Pulmonary Medical History: Reports: Hx Asthma - ON MEDICATIONS, Hx Pneumonia - MULTIPLE TIMES Neurological Medical History: Reports: None Endocrine Medical History: Reports: None Renal/ Medical History: Reports: None Malignancy Medical History: Reports: None GI Medical History: Reports: Hx Gastroesophageal Reflux Disease, Hx Ulcer - YRS AGO Musculoskeltal Medical History: Reports Hx Arthritis - RIGHT WRIST (R/T OLD MISSED FX), Reports Hx Musculoskeletal Deformity, Reports Hx Musculoskeletal Trauma Skin Medical History: Reports None Psychiatric Medical History: Reports: None Traumatic Medical History: Reports: None Infectious Medical History: Reports: None Past Surgical History: Reports: Hx Appendectomy, Hx Hysterectomy, Hx Orthopedic Surgery - right hand navicular resection, left elbow, back, Hx Vascular Surgery - Left carotid endarterectomy - Immunizations Hx Diphtheria, Pertussis, Tetanus Vaccination: Yes Review of Systems - Review of Systems Constitutional: No symptoms reported EENT: No symptoms reported Cardiovascular: No symptoms reported Respiratory: No symptoms reported Gastrointestinal: No symptoms reported Genitourinary: No symptoms reported Female Genitourinary: No symptoms reported Musculoskeletal: Ankle swelling - Pain swelling and some bruising to the ankle Skin: No symptoms reported Hematologic/Lymphatic: No symptoms reported Neurological/Psychological: No symptoms reported Physical Exam - Vital signs Vitals: Temp Pulse Resp BP Pulse Ox 97.7 F 77 20 111/70 96 05/27/18 16:16 05/27/18 16:16 05/27/18 16:16 05/27/18 16:16 05/27/18 16:16 Interpretation: Normal - General General appearance: Appears well, Alert - HEENT Head: Normocephalic, Atraumatic Eyes: Normal Pupils: PERRL - Respiratory Respiratory status: No respiratory distress Chest status: Nontender Breath sounds: Normal Chest palpation: Normal - Cardiovascular Rhythm: Regular Heart sounds: Normal auscultation Murmur: No - Abdominal Inspection: Normal Distension: No distension Bowel sounds: Normal Tenderness: Nontender Organomegaly: No organomegaly - Back Back: Normal, Nontender - Extremities General upper extremity: Normal inspection, Nontender, Normal color, Normal ROM , Normal temperature General lower extremity: Normal temperature Calf: Tender - Lower leg. No: Ecchymosis, Instability, Laceration, Unable to bear weight Ankle: Tender, Ecchymosis, Edema, Limited ROM - Patient will not allow assessment of the ankle. Will not allow any passive range of motion to the ankle, Unable to bear weight. No: Abrasion, Deformity, Instability, Laceration Foot: Tender, Ecchymosis, Edema, No evidence of FB. No: Abrasion, Deformity, Instability, Laceration, Metatarsal compress. pain, Nail injury, Navicular tenderness, Tender 5th metatarsal, Unable to bear weight - Neurological Neuro grossly intact: Yes Cognition: Normal Orientation: AAOx4 Sameer Coma Scale Eye Opening: Spontaneous Sameer Coma Scale Verbal: Oriented [place] Coma Scale Motor: Obeys Commands [place] Coma Scale Total: 15 Speech: Normal Motor strength normal: LUE, RUE, LLE, RLE Sensory: Normal - Psychological Associated symptoms: Normal affect, Normal mood - Skin Skin Temperature: Warm Skin Moisture: Dry Skin Color: Normal Location of irregularity: Extremities - Minimal bruising to the ankle Course - Re-evaluation Re-evalutation: 05/27/18 17:59 X-rays discussed with patient and patient was very angry that she did not have a broken leg or ankle. She states that the x-rays could not be right because she knows she broke her ankle. X-rays were discussed with her and written copies of the x-rays given to patient follow-up with her primary doctor and orthopedics. I gave the patient the name and number of the orthopedic and she said do not she know I have to go to my primary care doctor first I told whichever she needed to go for first to go ahead. When I attempted to put a Misbah wrap and stirrup splint on she became very angry when I tried to straighten her ankle in proper alignment she became very angry and tried to smack me and scratch me and said that she did not want the ankle splint on if I had to touch her ankle did not I understand that I cannot move her ankle. He states she cannot use crutches because she cannot use her right hand to bend it in the proper angles to use crutches and she cannot use a cane because she cannot bear any weight on that foot. I told her she could use her pain medicine at home use her ibuprofen elevate and ice and follow-up with orthopedics and her primary doctor. - Vital Signs Vital signs: Temp Pulse Resp BP Pulse Ox 97.7 F 77 20 111/70 96 05/27/18 16:16 05/27/18 16:16 05/27/18 16:16 05/27/18 16:16 05/27/18 16:16 - Diagnostic Test Radiology reviewed: Image reviewed, Reports reviewed Discharge - Discharge Clinical Impression: Right ankle sprain Qualifiers: Encounter type: initial encounter Involved ligament of ankle: unspecified ligament Qualified Code(s): S93.401A - Sprain of unspecified ligament of right ankle, initial encounter Condition: Stable Disposition: HOME, SELF-CARE Additional Instructions: SPRAINED ANKLE: Your sprained ankle results from stretching or tearing of the ligaments which support the ankle. This usually results from twisting the foot inward and under. The ligaments will require time and protection in order to heal properly. Many ankle sprains are quite disabling, and should be taken seriously. The usual treatment for an ankle sprain is cold packs; protection with tape , splints, or wraps; elevation; and staying off the ankle for at least a day. As the ankle improves, you can walk IF it's not painful to bear weight. Sports are best postponed until healing is complete. More serious sprains usually require strengthening exercises after early healing. Your physician has assessed the seriousness of the ligament injury to your ankle. However, the treatment may change, depending on how your ankle progresses. If further exams were recommended, it is important that you follow through. Call the doctor if your foot becomes numb, painful, or severely swollen. MISBAH WRAP: A compression dressing (misbah wrap) has been placed. This helps hold the area still. It limits swelling and internal bleeding. The wrap should be comfortably snug -- not tight. You should feel a sense of pressure, but not severe pain under the wrap. Unless the physician tells you otherwise, you can adjust the wrap for comfort. If the wrap causes symptoms suggesting it's too tight -- uncomfortable pressure, swelling or discoloration beyond the wrap, numbness, or severe pain - - you must loosen the wrap. If these symptoms don't resolve promptly, return for re-evaluation. ANKLE STIRRUP SPLINT: You are to use an ankle brace called a stirrup splint. This type of brace allows you to place greater stresses on the ankle without risk of re-injury, and is often used for more severe ankle injuries such as avulsion fractures and ligament ruptures. The splint can be worn over a sock or tape. For proper support, wear the splint with a shoe over it. It's important that the splint fit properly. Adjust the heel tension, if needed. If your splint has air bladders, peel back the bottom of each air bladder, then move the Velcro attachment of the heel strap up or down. Air bladder pressure can be adjusted by pulling up the valve at the top, threading the air tube down into the main bladder, then blowing air into the bladder or squeezing it out. The two sides of the stirrup can be moved forward or back on your ankle by changing the attachment of the main straps. If you are unable to use the ankle comfortably in the splint, return for re -evaluation. ICE & ELEVATION: Apply ice packs frequently against the painful area. Many different schedules are recommended, such as "20 minutes on, 20 minutes off" or "one hour ice, two hours rest." If you need to work, you may need to go longer between ice treatments. You should plan to have the area ice packed AT LEAST one- fourth of the time. The ice should be applied over the wrap, tape, or splint, or over a layer of cloth -- not directly against the skin. Some ice bags have a built-in cloth and can be put directly on the skin. Your injured part should be elevated as much as possible over the next 48 hours. Try to keep the injury above the level of the heart. Avoid use of the injured area. Elevation and rest will decrease the swelling. USE OF [id number] IBUPROFEN: Ibuprofen (Advil, Nuprin, Medipren, Motrin IB) is a medication for fever and pain control. In addition, it has anti- inflammatory effects which may be beneficial, especially in the treatment of injuries. It's best to take ibuprofen with food. Persons with ulcer disease or allergy to aspirin should notify their physician of this before taking ibuprofen. Ibuprofen can be given every four to six hours, for a total of four doses daily. Age Pain or fever dose Antiinflammatory dose 6-8 yr 200 mg (1 tab) 200 mg (1 tab) 9-11 yr 200 mg (1 tab) 200-400 mg (1-2 tab) 11-14 yr 200-400 mg (1-2 tab) 400 mg (2 tab) 15-adult 400 mg (2 tab) 600 mg (3 tab) FOLLOW-UP CARE: If you have been referred to a physician for follow-up care, call the physician s office for an appointment as you were instructed or within the next two days. If you experience worsening or a significant change in your symptoms, notify the physician immediately or return to the Emergency Department at any time for re-evaluation. Prescriptions: Ibuprofen 800 mg PO Q8HP PRN #14 tablet PRN Reason: Referrals: ERYNA MACHADO MD [Primary Care Provider] - Follow up as needed CONSTANTINE CANDELARIA DO [ACTIVE STAFF] - Follow up as needed
[2018-05-27] MEDS ORDERED: IBUPROFEN 800 MG TABLET PO ONE (17:46)
== END 2018-05-27 17:59 | disposition home or self-care (01) ==
LOC: ER 15:50
DX: S93.401A Sprain of unspecified ligament of right ankle, initial encounter (principal); S90.31XA Contusion of right foot, initial encounter; W18.40XA Slipping, tripping and stumbling without falling, unspecified, initial encounter; Y93.39 Activity, other involving climbing, rappelling and jumping off; Y92.009 Unspecified place in unspecified non-institutional (private) residence as the place of occurrence of the external cause; I25.10 Atherosclerotic heart disease of native coronary artery without angina pectoris; J45.909 Unspecified asthma, uncomplicated; Z88.8 Allergy status to other drugs, medicaments and biological substances; Z88.5 Allergy status to narcotic agent
CPT/HCPCS: 99283; L4350

== ENCOUNTER → 2018-07-01 | Outpatient (CLI) | payer MEDICARE, OTHER ==
--- NOTE | 2018-07-01 13:21 | RADIOLOGY REPORT (SQ) ---
EXAM DESCRIPTION: CTA CHEST COMPLETED DATE/TIME: 07/01/2018 12:53 pm REASON FOR STUDY: OTHER CHEST PAIN R07.89 OTHER CHEST PAIN COMPARISON: CT CHEST 04/06/2018 TECHNIQUE: CT scan of the chest performed using helical scanning technique with dynamic intravenous contrast injection. Images reviewed with lung, soft tissue and bone windows. Reconstructed coronal and sagittal MPR images reviewed. Additional 3 dimensional post-processing performed to develop Maximal Intensity Projection images (SC P). All images stored on PACS. All CT scanners at this facility use dose modulation, iterative reconstruction, and/or weight based d osing when appropriate to reduce radiation dose to as low as reasonably achievable (ALARA). [facility]: Dose Right [facility]: CareDose [facility]: Dose Right [facility]: Teradose 4D [facility]: Fios CONTRAST TYPE AND DOSE: contrast/concentration: Isovue 370.00 mg/ml; Total Contrast Delivered: 66.0 ml; Total Saline Delivered: 80.0 ml Contrast bolus optimized for the pulmonary arteries. Contrast bolus diagnostic for the aorta. RENAL FUNCTION: Creatinine 0.8 RADIATION DOSE: CT Rad equipment meets quality standard of care and radiation dose reduction techniq ues were employed. CTDIvol: 9.4 - 12.8 mGy. DLP: 490 mGy-cm. . LIMITATIONS: None. FINDINGS: LUNGS AND PLEURA: No acute infiltrates. Minimal bandlike scarring or atelectasis in the l ingula and medial aspect right middle lobe. No pleural effusion. No pneumothorax. No worrisome quincy g nodules. AORTA AND GREAT VESSELS: No aneurysm. No thoracic aortic dissection. HEART: No pericardial effusion. Old sternotomy post CABG PULMONARY ARTERIES: No emboli visualized in the main pulmonary arteries or the segmental branches. HILAR AND MEDIASTINAL STRUCTURES: No identified masses or abnormal nodes. HARDWARE: None in the chest. UPPER ABDOMEN: Fatty liver. THYROID AND OTHER SOFT TISSUES: No masses. No adenopathy. BONES: No acute or significant finding. 3D MIPS: Confirm above findings. OTHER: No other significant finding. IMPRESSION: No CT angio evidence of acute pulmonary emboli. No thoracic aortic dissection. COMMENT: Quality ID # 436: Final reports with documentation of one or more dose reduction techniques (e.g., Automated exposure control, adjustment of the mA and/or kV according to patient size, use of iterative reconstruction technique) TECHNICAL DOCUMENTATION: JOB ID: [id number] [employer]- All Rights Reserved Reading location - IP/workstation name: [email or web address]
--- NOTE | 2018-07-01 15:01 | RADIOLOGY REPORT (SQ) ---
EXAM DESCRIPTION: CHEST 2 VIEWS COMPLETED DATE/TIME: 07/01/2018 1:15 pm REASON FOR STUDY: OTHER CHEST PAIN (R07.89) COMPARISON: CT angio chest 07/01/2018 Two-view chest 03/19/2016 EXAM PARAMETERS: NUMBER OF VIEWS: two views TECHNIQUE: Digital Frontal and Lateral radiographic views of the chest acquired. RADIATION DOSE: NA LIMITATIONS: none FINDINGS: LUNGS AND PLEURA: No opacities, masses or pneumothorax. No pleural effusion. MEDIASTINUM AND HILAR STRUCTURES: No masses or contour abnormalities. HEART AND VASCULAR STRUCTURES: Heart normal size. No evidence for failure. BONES: Osteopenic. No thoracic compression deformity HARDWARE: None in the chest. OTHER: No other significant finding. IMPRESSION: NO ACUTE RADIOGRAPHIC FINDING IN THE CHEST. TECHNICAL DOCUMENTATION: JOB ID: [id number] [employer]- All Rights Reserved Reading location - IP/workstation name: [email or web address]
== END ==
LOC: RAD 11:49
PROVIDERS: ATTEND Family Medicine
DX: R07.89 Other chest pain (principal)
CPT/HCPCS: 71046; 71275; 82565

== ENCOUNTER → 2018-07-03 | Outpatient (CLI) | payer MEDICARE, OTHER ==
--- NOTE | 2018-07-04 15:19 | RADIOLOGY REPORT (SQ) ---
EXAM DESCRIPTION: MRI RT LOWER JOINT WITHOUT COMPLETED DATE/TIME: 07/03/2018 7:23 pm REASON FOR STUDY: M25.571 PAIN IN RIGHT ANKLE AND JOINTS OF RIGHT FOOT M25.571 PAIN IN RIGHT ANKLE AND JOINTS OF RIGHT FOOT COMPARISON: None. TECHNIQUE: Right ankle images acquired and stored on PACS. Multiplanar images include fat sensitive sequences as T1, fluid sensitive sequences as FST2/STIR, cartilage sensitive sequences as FSPD, and g radient echo sequences. LIMITATIONS: None. FINDINGS: BONE MARROW: No significant marrow abnormality. EFFUSIONS: Ankle and subtalar joint effusions. OSSEOUS ARTICULATIONS: Intact. TALAR DOME AND TIBIAL PLAFOND: Cartilage thinning. Mild subchondral edema. ACHILLES TENDON: Intact without partial or full-thickness tear. No adjacent bursal fluid or edema. TIBIALIS ANTERIOR TENDON: Intact without edema at the 1st MT attachment. TIBIALIS POSTERIOR TENDON: Normal morphology and no edema at the navicular attachment. No tendon jimenez th fluid. FLEXOR HALLUCIS LONGUS AND FLEXOR DIGITORUM TENDONS: No tears. Small amount of fluid in the tendon s heaths which can be a normal variant. PERONEUS LONGUS AND BREVIS TENDON: No tear identified. No tendon sheath fluid. ATFL, CFL, PTFL: Avulsed bone fragment attached to the distal calcaneofibular ligament consistent wit h old injury. Anterior and posterior talofibular ligaments are intact. DELTOID LIGAMENT: Visualized components intact. TARSAL TUNNEL: No masses. No muscle atrophy. SINUS TARSI: No fluid. No reactive marrow edema or erosions. PLANTAR FASCIA: No signal alteration or tear. ADJACENT SOFT TISSUES: No masses. OTHER: No other significant finding. IMPRESSION: Degenerative changes. Ankle and subtalar joint effusions. No acute tendon or ligament injury. TECHNICAL DOCUMENTATION: JOB ID: [id number] [employer]- All Rights Reserved Reading location - IP/workstation name: [email or web address]
== END ==
LOC: RAD 19:49
PROVIDERS: ATTEND Family Medicine
DX: M25.571 Pain in right ankle and joints of right foot (principal)

== ENCOUNTER → 2018-09-08 | Outpatient (CLI) | payer MEDICARE, OTHER ==
[2018-09-08 09:16] LABS: ABSOLUTE BASOPHILS # (AUTO) 0.1 10^3/uL (0.0-0.2); ABSOLUTE EOSINOPHILS # (AUTO) 0.1 10^3/uL (0.0-0.6); ABSOLUTE LYMPHOCYTES (AUTO) 3.6 10^3/uL (0.5-4.7); ABSOLUTE MONOCYTES (AUTO) 0.9 10^3/uL (0.1-1.4); BASOPHILS % (AUTO) 0.8 % (0-2); EOSINOPHILS % (AUTO) 1.5 % (0-6); HEMOGLOBIN 14.6 g/dL (12.0-15.5); LYMPHOCYTES % (AUTO) 41.4 % (13-45); MEAN CORPUSCULAR HEMOGLOBIN 29.8 pg (27.0-33.4); MEAN CORPUSCULAR HGB CONC 34.7 g/dL (32.0-36.0); MEAN CORPUSCULAR VOLUME 86 fl (80-97); MONOCYTES % (AUTO) 10.6 % (3-13); PLATELET COUNT 285 10^3/uL (150-450); RED BLOOD COUNT 4.89 10^6/uL (3.72-5.28); SEGMENTED NEUTROPHILS % (AUTO) 45.7 % (42-78); TOTAL CELLS COUNTED % (AUTO) 100 %; WHITE BLOOD COUNT 8.6 10^3/uL (4.0-10.5)
[2018-09-08 09:39] LABS: ALANINE AMINOTRANSFERASE 21 U/L (9-52); ALBUMIN 3.9 g/dL (3.5-5.0); ALKALINE PHOSPHATASE 80 U/L (38-126); ANION GAP 9 (5-19); ASPARTATE AMINO TRANSFERASE 23 U/L (14-36); BILIRUBIN,DIRECT 0.3 mg/dL (0.0-0.4); BILIRUBIN,TOTAL 0.6 mg/dL (0.2-1.3); BLOOD UREA NITROGEN 16 mg/dL (7-20); CALCIUM 9.3 mg/dL (8.4-10.2); CARBON DIOXIDE 30 mmol/L (22-30); CHLORIDE 104 mmol/L (98-107); CHOLESTEROL 260.61 mg/dL (0-200); GLUCOSE 97 mg/dL (75-110); POTASSIUM 4.3 mmol/L (3.6-5.0); SODIUM 143.2 mmol/L (137-145); TOTAL PROTEIN 7.3 g/dL (6.3-8.2); TRIGLYCERIDES 150 mg/dL (<150)
[2018-09-08 09:51] LABS: DIRECT LDL 209 mg/dL (<100)
[2018-09-08 09:56] LABS: FREE T3 4.03 pg/mL (2.77-5.27); FREE T4 (FREE THYROXINE) 0.89 ng/dL (0.78-2.19)
[2018-09-08 10:09] LABS: THYROID STIMULATING HORMONE 10.8 uIU/mL (0.47-4.68)
== END ==
LOC: OD 07:51
PROVIDERS: ATTEND Family Medicine
DX: E78.5 Hyperlipidemia, unspecified (principal); E03.9 Hypothyroidism, unspecified; E55.9 Vitamin D deficiency, unspecified; R73.9 Hyperglycemia, unspecified; Z79.899 Other long term (current) drug therapy
CPT/HCPCS: 36415; 80053; 80061; 82306; 83036; 84439; 84443; 84481; 85025

== ENCOUNTER → 2018-09-15 | Outpatient (CLI) | payer MEDICARE, OTHER ==
--- NOTE | 2018-09-15 11:36 | RADIOLOGY REPORT (SQ) ---
EXAM DESCRIPTION: CT LUNG CANCER SCREENING COMPLETED DATE/TIME: 09/15/2018 9:59 am REASON FOR STUDY: NICOTINE DEPENDENCE (F17.210) F17.210 NICOTINE DEPENDENCE, CIGARETTES, UNCOMPLICA GIOVANNI Has the patient had a Chest CT scan within the past year? Yes Was the patient offered tobacco cessation counseling? Yes Was the patient engaged in shared decision making for this test? Yes Does the patient have signs or symptoms of Lung Cancer? No Is the patient a smoker? Yes How many packs per year? 365 How many years since quitting smoking? Not applicable Patients age: 67 COMPARISON: 07/01/2018, 04/06/2018, 04/04/2017 TECHNIQUE: Low Dose CT scan performed of the chest without intravenous contrast for purposes of scre ening for lung cancer. Images reviewed with lung, soft tissue and bone windows. Reconstructed coron al and sagittal MPR images reviewed. All images stored on PACS. All CT scanners at this facility use dose modulation, iterative reconstruction, and/or weight based d osing when appropriate to reduce radiation dose to as low as reasonably achievable (ALARA). [facility]: Dose Right [facility]: CareDose [facility]: Dose Right [facility]: Teradose 4D [facility]: [employer] RADIATION DOSE: CT Rad equipment meets quality standard of care and radiation dose reduction techniq ues were employed. CTDIvol: 2.1 mGy. DLP: 76 mGy-cm. mGy. . LIMITATIONS: None FINDINGS: LUNGS AND PLEURA: No masses or nodules. No pleural effusions or calcifications. No pne umothorax. Minimal bandlike scarring or atelectasis in the medial aspect of the right middle lobe a nd lingula, stable. Obstructive lung disease with enlarged centrilobular airspaces in the upper lobe s bilaterally. HILAR AND MEDIASTINAL STRUCTURES: No identified masses. No abnormal nodes. HEART AND VASCULAR STRUCTURES: No aortic aneurysm. No pericardial effusion. No cardiac devices. CORONARY ARTERY CALCIFICATIONS: No significant calcifications. UPPER ABDOMEN, THYROID, BONES, OTHER SOFT TISSUES: No significant findings. IMPRESSION: NO SIGNIFICANT FINDING IN THE LUNGS ON NON-CONTRASTED CHEST CT. Mild changes of obstructive lung disease, stable benign bandlike scarring in the medial aspect of the lingula and right middle lobe LUNGRADS: LUNGRADS: 1 NEGATIVE. NO NODULES, OR DEFINITELY BENIGN NODULES MODIFIER: NONE RECOMMENDATION: Continue annual screening with LDCT in 12 months. COMMENT: CRITERIA: No lung nodules. Nodules with specific calcifications: Complete, central, popcorn, concentric rings and fat containin g nodules. TECHNICAL DOCUMENTATION: JOB ID: [id number] Quality ID # 436: Final reports with documentation of one or more dose reduction techniques (e.g., Au tomated exposure control, adjustment of the mA and/or kV according to patient size, use of iterative reconstruction technique) 2010 [facility] Radiology Reading location - IP/workstation name: [email or web address] [id number]
== END ==
LOC: RAD 09:36
PROVIDERS: ATTEND Family Medicine
DX: Z12.2 Encounter for screening for malignant neoplasm of respiratory organs (principal); F17.210 Nicotine dependence, cigarettes, uncomplicated
CPT/HCPCS: G0297

== ENCOUNTER → 2019-03-09 | Outpatient (CLI) | payer MEDICARE, OTHER ==
--- NOTE | 2019-03-09 08:53 | WOMENS IMAGING REPORT ---
EXAM DESCRIPTION: 3D SCREENING MAMMO BILAT COMPLETED DATE/TIME: 03/09/2019 8:13 am REASON FOR STUDY: Z12.31 ENCOUNTER FOR SCREENING MAMMOGRAM FOR MALIGNANT NEOPLASM OF BREAST M81.0 A GE-RELATED OSTEOPOROSIS W/O CURRENT PATHOLOGICAL FRAC COMPARISON: 01/12/2018 and 01/06/2017. TECHNIQUE: Standard craniocaudal and mediolateral oblique views of each breast recorded using digita l acquisition and breast tomosynthesis. LIMITATIONS: None. FINDINGS: No masses, calcifications or architectural distortion. No areas of suspicion. Read with the assistance of CAD. .[facility] - R2 [employer] Version 1.3 .[facility] - R2 Cenova Version 2.1 .[facility] - R2 Cenova Version 2.4 .[facility] - R2 Cenova Version 2.4 .[facility] - R2 [employer] Consultant Version 9.2 IMPRESSION: NORMAL MAMMOGRAM. BIRADS 1. BREAST DENSITY: a. The breasts are almost entirely fatty. BIRAD: 1 NEGATIVE RECOMMENDATION: ROUTINE SCREENING COMMENT: The patient has been notified of the results by letter per MQSA requirements. Additional no tification policies are in place for contacting patient with suspicious or incomplete findings. Quality ID #225: The [employer] recommends an annual screening mammogram for women aged 40 years or over. This facility utilizes a reminder system to ensure that all patients receive reminder letters, and/or direct phone calls for appointments. This includes reminders for routine scr eening mammograms, diagnostic mammograms, or other Breast Imaging Interventions when appropriate. Th is patient will be placed in the appropriate reminder system. The [employer] (ACR) has developed recommendations for screening MRI of the breast s in certain patient populations, to be used in conjunction with mammography. Breast MRI surveillanc e may be appropriate for women with more than 20% lifetime risk of developing breast cancer as deter mined by genetic testing, significant family history of the disease, or history of mantle radiation f or Hodgkins Disease. ACR Practice Guidelines 2008. DBT Technology DBT is a type of tomographic mammography. With conventional mammography, overlapping breast tissue ma y make lesions difficult to detect, even with good compression. DBT uses an x-ray tube that rotates a round the breast, taking images at different angles. These images are then combined to create thin sl ices of the breast that the radiologist can view as a 3D reconstruction. The [employer] unit can perform full-field digital mammograms (2D imaging); or DBT (3D imaging); or both, in a combination mode that quickly performs both the mammogram and the tomosynthesis scan while the breast is still compressed. PQRS 6045F: Fluoroscopic imaging is not utilized for breast tomosynthesis. TECHNICAL DOCUMENTATION: FINDING NUMBER: (1) ASSESSMENT: (1) JOB ID: [id number] [employer]- All Rights Reserved Reading location - IP/workstation name: [email or web address]
--- NOTE | 2019-03-09 10:02 | WOMENS IMAGING REPORT ---
EXAM DESCRIPTION: BONE DENSITY HIP/SPINE COMPLETED DATE/TIME: 03/09/2019 8:13 am REASON FOR STUDY: M81.0 AGE-RELATED OSTEOPOROSIS WITHOUT CURRENT PATHOLOGICAL FRACTURE M81.0 AGE-RE LATED OSTEOPOROSIS W/O CURRENT PATHOLOGICAL FRAC COMPARISON: 01/06/2017. TECHNIQUE: Dual-Energy X-ray Absorptiometry (DEXA) of the AP Spine and Hip. LIMITATIONS: None. FINDINGS: LUMBAR SPINE: The bone mineral density (BMD) measured from L1-L4 in the AP projection correlates with a T-score of -2.0, which is osteopenia as defined by the World Health Organization. HIP: The bone mineral density (BMD) measured in the left hip correlates with a T-score of -3.3, which is o steoporosis as defined by the World Health Organization. IMPRESSION: 1. LUMBAR SPINE: OSTEOPENIA. 2. HIP: OSTEOPOROSIS. COMMENT: The World Health Organization defines low BMD as follows: T-score: Normal: Greater than -1.0 Osteopenia: Between -1.0 and -2.5 Osteoporosis: Less than -2.5 without fractures Established osteoporosis: Less than -2.5 with fractures In general, you may wish to consider: Diagnosis Treatment Follow-up DEXA Normal BMD Prevention 2-3 years Osteopenia Prevention/Therapy 1-2 years Osteoporosis Therapy Yearly TECHNICAL DOCUMENTATION: JOB ID: [id number]- All Rights Reserved Reading location - IP/workstation name: [email or web address]
== END ==
LOC: WI 07:30
PROVIDERS: ATTEND Family Medicine
DX: Z12.31 Encounter for screening mammogram for malignant neoplasm of breast (principal); M81.0 Age-related osteoporosis without current pathological fracture
CPT/HCPCS: 77063; 77067; 77080

== ENCOUNTER → 2019-03-18 | Outpatient (CLI) | payer MEDICARE, OTHER ==
[2019-03-18 08:15] LABS: ABSOLUTE BASOPHILS # (AUTO) 0.1 10^3/uL (0.0-0.2); ABSOLUTE EOSINOPHILS # (AUTO) 0.1 10^3/uL (0.0-0.6); ABSOLUTE LYMPHOCYTES (AUTO) 3.3 10^3/uL (0.5-4.7); ABSOLUTE MONOCYTES (AUTO) 0.9 10^3/uL (0.1-1.4); ABSOLUTE NEUT (AUTO) 4.2 10^3/uL (1.7-8.2); BASOPHILS % (AUTO) 0.7 % (0-2); EOSINOPHILS % (AUTO) 1.7 % (0-6); HEMATOCRIT 39.5 % (36.0-47.0); HEMOGLOBIN 13.7 g/dL (12.0-15.5); LYMPHOCYTES % (AUTO) 38.6 % (13-45); MEAN CORPUSCULAR HEMOGLOBIN 29.9 pg (27.0-33.4); MEAN CORPUSCULAR HGB CONC 34.6 g/dL (32.0-36.0); MEAN CORPUSCULAR VOLUME 87 fl (80-97); MONOCYTES % (AUTO) 10.1 % (3-13); PLATELET COUNT 237 10^3/uL (150-450); RED BLOOD COUNT 4.57 10^6/uL (3.72-5.28); RED CELL DISTRIBUTION WIDTH 13.6 % (11.5-14.0); SEGMENTED NEUTROPHILS % (AUTO) 48.9 % (42-78); TOTAL CELLS COUNTED % (AUTO) 100 %; WHITE BLOOD COUNT 8.5 10^3/uL (4.0-10.5)
[2019-03-18 08:54] LABS: ALANINE AMINOTRANSFERASE 24 U/L (9-52); ALKALINE PHOSPHATASE 73 U/L (38-126); ANION GAP 6 (5-19); ASPARTATE AMINO TRANSFERASE 21 U/L (14-36); BILIRUBIN,DIRECT 0.3 mg/dL (0.0-0.4); BILIRUBIN,TOTAL 0.4 mg/dL (0.2-1.3); BLOOD UREA NITROGEN 19 mg/dL (7-20); CALCIUM 9.5 mg/dL (8.4-10.2); CARBON DIOXIDE 29 mmol/L (22-30); CHLORIDE 104 mmol/L (98-107); CHOLESTEROL 119.01 mg/dL (0-200); GLUCOSE 96 mg/dL (75-110); POTASSIUM 4.5 mmol/L (3.6-5.0); SODIUM 139.1 mmol/L (137-145); TOTAL PROTEIN 7.1 g/dL (6.3-8.2); TRIGLYCERIDES 155 mg/dL (<150)
[2019-03-18 09:05] LABS: DIRECT LDL 66 mg/dL (<100)
[2019-03-18 09:10] LABS: FREE T3 4.54 pg/mL (2.77-5.27); FREE T4 (FREE THYROXINE) 0.84 ng/dL (0.78-2.19)
[2019-03-18 09:24] LABS: THYROID STIMULATING HORMONE 12.7 uIU/mL (0.47-4.68)
== END ==
LOC: OD 07:13
PROVIDERS: ATTEND Family Medicine
DX: K21.0 Gastro-esophageal reflux disease with esophagitis (principal); R73.9 Hyperglycemia, unspecified; E78.5 Hyperlipidemia, unspecified; E03.9 Hypothyroidism, unspecified; D21.0 Benign neoplasm of connective and other soft tissue of head, face and neck; E55.9 Vitamin D deficiency, unspecified; Z13.1 Encounter for screening for diabetes mellitus; Z11.59 Encounter for screening for other viral diseases
CPT/HCPCS: 36415; 80053; 80061; 82306; 83036; 84439; 84443; 84481; 85025; 86787

== ENCOUNTER → 2019-03-29 | Outpatient (CLI) | payer MEDICARE, OTHER ==
--- NOTE | 2019-03-29 14:41 | RADIOLOGY REPORT (SQ) ---
EXAM DESCRIPTION: CAROTID DOPPLER COMPLETED DATE/TIME: 03/29/2019 2:11 pm REASON FOR STUDY: LT CAROTID STENOSIS I65.22 OCCLUSION AND STENOSIS OF LEFT CAROTID ARTERY I73.9 P ERIPHERAL VASCULAR DISEASE, UNSPECIFIED COMPARISON: 08/31/2015 TECHNIQUE: Grayscale ultrasound, Doppler velocity and spectra, and color Doppler images acquired of the extra-cranial carotid and vertebral arteries. Images stored on PACS. LIMITATIONS: None. FINDINGS: RIGHT CAROTID CCA Velocities: Within normal limits. ICA Velocities Peak systolic 98 cm/s. End diastolic 39 cm/s. Proximal ICA/CCA peak systolic ratio 1.3. Shadowing(calcified) mild plaque in the proximal right internal carotid artery. Spectra normal. LEFT CAROTID CCA Velocities: Within normal limits. ICA Velocities Peak systolic 115 cm/s. End diastolic 39 cm/s. Proximal ICA/CCA peak systolic ratio 1.5. Prior history of left carotid endarterectomy. Mild(calcified) shadowing plaque in the proximal ICA. Spectra normal. VERTEBRAL ARTERIES: Antegrade flow. Normal waveforms. SUBCLAVIAN ARTERIES: No finding. OTHER: No other significant finding. IMPRESSION: 1. Mild shadowing plaque in the proximal ICAs bilaterally. 2. Prior history of left carotid endarterectomy. 3. NO HEMODYNAMICALLY SIGNIFICANT STENOSIS. COMMENT: Quality ID #195: Velocity criteria are extrapolated from the diameter data as defined by t he Society of Radiologists in Ultrasound Consensus Conference. Radiology 2003: 229; 340-346. TECHNICAL DOCUMENTATION: JOB ID: [id number] [employer]- All Rights Reserved Reading location - IP/workstation name: [email or web address]
--- NOTE | 2019-03-29 20:04 | XCELERA REPORT ---
[address] [address] Lower Extremity Arterial Evaluation Name: KAMARI MENDOZA Age: 68 yrs Gender: Female : 1950 Patient Status: Outpatient Patient Location: Study Date: 03/29/2019 10:13 AM Procedure: A color flow and duplex scan of the lower extremity arteries was performed bilaterally with velocity and waveform anaylsis. Ankle brachial indicies performed. 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 Proximal occlusion in Anterior and Posterior Tibial arteries, with excellent reconstitution, through the Peroneal. Distally, triphasic with decreased velocity in the Posterior Tibial and Biphasic in the Dorsalis Pedis. Ankle Brachial index 1.08. Left Side Arterial Evaluation Normal velocity and triphasic waveforms noted from the Common Femoral artery to the Peroneal and Anterior Tibial arteries . Proximal occlusion in Posterior Tibial artery, with excellent reconstitution, through the Peroneal. Distally, triphasic with normal velocity in the Posterior Tibial. Ankle Brachial index 1.08. Interpretation Summary Mild hemodynamically significant lesions in the bilateral lower extremities, on duplex imaging, at rest. PRASAD's are normal supportive of normal arterial supply. In spite of the above there is significant Atherosclerotic disease which is remarkably well commentated. thorough the Peroneal artery . : REYNA MACHADO [place]
== END ==
LOC: SP 09:23
PROVIDERS: ATTEND Family Medicine
DX: I65.22 Occlusion and stenosis of left carotid artery (principal); I73.9 Peripheral vascular disease, unspecified
CPT/HCPCS: 93880; 93925

== ENCOUNTER → 2019-09-24 | Outpatient (CLI) | payer MEDICARE, OTHER ==
--- NOTE | 2019-09-24 09:29 | RADIOLOGY REPORT (SQ) ---
EXAM DESCRIPTION: CT LUNG CANCER SCREENING COMPLETED DATE/TIME: 09/24/2019 7:59 am REASON FOR STUDY: PERSONAL HX OF NICOTINE DEPENDENCE (Z87.891) Z87.891 PERSONAL HISTORY OF NICOTINE DEPENDENCE Has the patient had a Chest CT scan within the past year? N Was the patient offered tobacco cessation counseling? Y Was the patient engaged in shared decision making for this test? Y Does the patient have signs or symptoms of Lung Cancer? N Is the patient a smoker? Y How many pack years? 50 How many years since quitting smoking? 0 Patients age: 68 COMPARISON: 09/15/2018 TECHNIQUE: Low Dose CT scan performed of the chest without intravenous contrast for purposes of scre ening for lung cancer. Images reviewed with lung, soft tissue and bone windows. Reconstructed coron al and sagittal MPR images reviewed. All images stored on PACS. All CT scanners at this facility use dose modulation, iterative reconstruction, and/or weight based d osing when appropriate to reduce radiation dose to as low as reasonably achievable (ALARA). [facility]: Dose Right [facility]: CareDose [facility]: Dose Right [facility]: Teradose 4D [facility]: Smart [employer] RADIATION DOSE: CT Rad equipment meets quality standard of care and radiation dose reduction techniq ues were employed. CTDIvol: 2.1 mGy. DLP: 80 mGy-cm. mGy. . LIMITATIONS: No technical limitations. FINDINGS: LUNG NODULES: Several subcentimeter ground-glass nodules in both lungs. Series 2, image 121 right upper lobe. Image 132 right upper lobe. Image 140 left upper lobe. Image 227 left upper lobe. Image 268 in the middle lobe. Image 314 subpleural left lower lobe. This is the largest grou nd-glass nodule measuring about 15 mm. REMAINING LUNGS AND PLEURA: No pleural effusions or calcifications. No pneumothorax. Mild centr ilobular emphysema. HILAR AND MEDIASTINAL STRUCTURES: No identified masses. No abnormal nodes. HEART AND VASCULAR STRUCTURES: No aortic aneurysm. No pericardial effusion. No cardiac devices. CORONARY ARTERY CALCIFICATIONS: Mild to moderate calcifications. UPPER ABDOMEN: No significant findings. THYROID AND OTHER SOFT TISSUES: No masses. No adenopathy. BONES: No significant finding. OTHER: No other significant findings. IMPRESSION: PROBABLY BENIGN FINDINGS IN THE LUNGS. OTHER FINDINGS ABOVE. LUNGRADS: LUNGRADS: 3, PROBABLY BENIGN. PROBABLY BENIGN FINDING(S)- SHORT TERM FOLLOW UP SUGGESTED; INCLUDES NODULES WITH A LOW LIKELIHOOD OF BECOMING A CLINICALLY ACTIVE CANCER. MODIFIER: NONE. RECOMMENDATION: Followup LDCT in 6 months. COMMENT: CRITERIA: Solid nodule(s): ? 6 mm to < 8 mm at baseline OR new 4 mm to < 6 mm. Part solid nodule(s): ? 6 mm total diameter with solid component < 6 mm OR new < 6 mm total diameter . Non solid nodule(s) (GGN): ? [address] or new. TECHNICAL DOCUMENTATION: JOB ID: [id number] Quality ID # 436: Final reports with documentation of one or more dose reduction techniques (e.g., Au tomated exposure control, adjustment of the mA and/or kV according to patient size, use of iterative reconstruction technique) 2010 [facility] Reading location - IP/workstation name: [email or web address]
== END ==
LOC: RAD 07:39
PROVIDERS: ATTEND Internal Medicine
DX: Z12.2 Encounter for screening for malignant neoplasm of respiratory organs (principal); Z87.891 Personal history of nicotine dependence; R91.8 Other nonspecific abnormal finding of lung field; I25.10 Atherosclerotic heart disease of native coronary artery without angina pectoris
CPT/HCPCS: G0297

== ENCOUNTER → 2019-09-24 | Outpatient (CLI) | payer MEDICARE, OTHER ==
[2019-09-24 08:25] LABS: ABSOLUTE BASOPHILS # (AUTO) 0.1 10^3/uL (0.0-0.2); ABSOLUTE EOSINOPHILS # (AUTO) 0.2 10^3/uL (0.0-0.6); ABSOLUTE MONOCYTES (AUTO) 0.8 10^3/uL (0.1-1.4); ABSOLUTE NEUT (AUTO) 4.8 10^3/uL (1.7-8.2); BASOPHILS % (AUTO) 0.6 % (0-2); EOSINOPHILS % (AUTO) 1.9 % (0-6); HEMATOCRIT 40.7 % (36.0-47.0); HEMOGLOBIN 14.1 g/dL (12.0-15.5); LYMPHOCYTES % (AUTO) 34.1 % (13-45); MEAN CORPUSCULAR HEMOGLOBIN 30.5 pg (27.0-33.4); MEAN CORPUSCULAR HGB CONC 34.7 g/dL (32.0-36.0); MEAN CORPUSCULAR VOLUME 88 fl (80-97); MONOCYTES % (AUTO) 9.4 % (3-13); PLATELET COUNT 245 10^3/uL (150-450); RED BLOOD COUNT 4.63 10^6/uL (3.72-5.28); RED CELL DISTRIBUTION WIDTH 13.9 % (11.5-14.0); TOTAL CELLS COUNTED % (AUTO) 100 %; WHITE BLOOD COUNT 8.8 10^3/uL (4.0-10.5)
[2019-09-24 08:59] LABS: FREE T3 3.92 pg/mL (2.77-5.27); FREE T4 (FREE THYROXINE) 0.81 ng/dL (0.78-2.19)
[2019-09-24 09:13] LABS: THYROID STIMULATING HORMONE 5.7 uIU/mL (0.47-4.68)
[2019-09-24 09:58] LABS: CHOLESTEROL 133.68 mg/dL (0-200); CREATINE KINASE 52 U/L (30-135); TRIGLYCERIDES 126 mg/dL (<150)
[2019-09-24 10:09] LABS: DIRECT LDL 72 mg/dL (<100)
== END ==
LOC: OD 07:14
PROVIDERS: ATTEND Family Medicine
DX: K21.0 Gastro-esophageal reflux disease with esophagitis (principal); R73.9 Hyperglycemia, unspecified; E78.5 Hyperlipidemia, unspecified; E03.9 Hypothyroidism, unspecified; E55.9 Vitamin D deficiency, unspecified
CPT/HCPCS: 36415; 80061; 82306; 82550; 83036; 84439; 84443; 84481; 85025

== ENCOUNTER → 2019-10-02 | Outpatient (CLI) | payer MEDICARE, OTHER ==
--- NOTE | 2019-10-03 15:32 | RADIOLOGY REPORT (SQ) ---
EXAM DESCRIPTION: MRI LUMBAR SPINE WITHOUT COMPLETED DATE/TIME: 10/02/2019 2:57 pm REASON FOR STUDY: (M51.16)INTERVERTEBRAL DISC DISORDERS W RADICULOPATHY, LUMBAR REGION M51.16 INTER VERTEBRAL DISC DISORDERS W RADICULOPATHY, LUMBAR COMPARISON: 06/07/2017 TECHNIQUE: Sagittal and Axial imaging includes T1, T2, STIR and gradient echo sequences. Coronal T2/ HASTE imaging. LIMITATIONS: None. FINDINGS: VISUALIZED UPPER ABDOMEN: Limited evaluation. No acute or suspicious findings suggested. SEGMENTATION: No transitional anatomy. The lowest well-developed disc space is labeled L5-S1. ALIGNMENT: Anatomic. VERTEBRAE: Intact. BONE MARROW: Reactive endplate changes L4-5 and L5-S1. DISC SIGNAL: Generalized loss of T2 signal. Loss of height L4-5 and L5-S1. POSTERIOR ELEMENTS: Generally intact. No pars defect evident. HARDWARE: None in the spine. CORD AND CONUS: Normal in size and signal intensity. Conus at the appropriate level. SOFT TISSUES: 3 cm infrarenal abdominal aortic aneurysm. Not seen previously. L1-L2: No significant spinal stenosis or exit foraminal stenosis. L2-L3: No significant spinal stenosis or exit foraminal stenosis. L3-L4: Disc bulge. Mild narrowing of the exit foramina. L4-L5: Generalized degenerative disc with broad-based bulge. Facet ligamentous hypertrophy. Marked narrowing of the left exit foramina. Moderate to marked central canal stenosis. L5-S1: Disc osteophyte complex asymmetric right. Flattening of the intrathecal right S1 root. Moder ate narrowing of the right exit foramina. LOWER THORACIC: Incompletely imaged. No stenosis seen. SACRUM: Visualized upper sacrum intact. OTHER: No other significant findings. IMPRESSION: L4-5 with marked narrowing of the left exit foramina and moderate to marked central helen l stenosis. L5-S1 with disc osteophyte complex resulting rightward flattening of the intrathecal chelsea ts particularly the right S1 root. No significant progression. Infrarenal abdominal aortic aneurysm measures 3 cm. COMMENT: Recommend follow-up every 3 years. J Vasc Surg 2009 Oct;50(4 Suppl):S2-49. TECHNICAL DOCUMENTATION: JOB ID: [id number]- All Rights Reserved Reading location - IP/workstation name: [email or web address]
== END ==
LOC: RAD 14:14
PROVIDERS: ATTEND Family Medicine
DX: M51.16 Intervertebral disc disorders with radiculopathy, lumbar region (principal); I71.4 Abdominal aortic aneurysm, without rupture
CPT/HCPCS: 72148

== ENCOUNTER → 2020-03-27 | Outpatient (CLI) | payer MEDICARE, OTHER ==
--- NOTE | 2020-03-27 10:28 | RADIOLOGY REPORT (SQ) ---
EXAM DESCRIPTION: CT CHEST WITHOUT IMAGES COMPLETED DATE/TIME: 03/27/2020 8:17 am REASON FOR STUDY: SOLITARY PULMONARY NODULE (R91.1), OTHER DISORDERS OF LUNG (J98.4) R91.1 SOLITARY PULMONARY NODULE COMPARISON: CTs of the chest without contrast from 09/24/2019 and 07/01/2018 TECHNIQUE: CT scan performed of the chest without intravenous contrast. Images reviewed with lung, soft tissue and bone windows. Reconstructed coronal and sagittal MPR images reviewed. All images st ored on PACS. All CT scanners at this facility use dose modulation, iterative reconstruction, and/or weight based d osing when appropriate to reduce radiation dose to as low as reasonably achievable (ALARA). [facility]: Dose Right [facility]: CareDose [facility]: Dose Right [facility]: Teradose 4D [facility]: Smart 3seventy RADIATION DOSE: CT Rad equipment meets quality standard of care and radiation dose reduction techniq ues were employed. CTDIvol: 9.1 mGy. DLP: 354 mGy-cm. LIMITATIONS: No technical limitations. FINDINGS: LUNGS AND PLEURA: There is centrilobular and paraseptal emphysema. The trachea and main br onchi are patent. There is mild bronchial wall thickening with scattered mucous plugs within segment al and intra-segmental bronchi of the lingula (image 59 of series 4) and right lower lobe (image 79 o f series 4) and areas of mild bronchiectasis/bronchiolectasis in the medial aspect of the left upper lobe and medial segment of the right middle lobe. The 6 mm ground-glass nodule in the lingula (image 67 of series 4) is stable from 09/24/2019. The subpleural nodular opacities in the right upper lobe are also stable. There are centrilobular micro-nodular opacities and an area of subpleural consolida tion in the lateral basal segment of the left lower lobe. There is no pleural effusion or pneumothorax. HILAR AND MEDIASTINAL STRUCTURES: No adenopathy or mass. HEART AND VASCULAR STRUCTURES: Atherosclerotic calcification of the thoracic aorta without aneurysmal dilate station. There is no cardiomegaly or pericardial effusion UPPER ABDOMEN: No acute findings THYROID AND OTHER SOFT TISSUES: No mass or adenopathy BONES: No acute fracture or osseous lesion. HARDWARE: None in the chest. OTHER: No other findings. IMPRESSION: 1. Stable 6 mm ground-glass nodule in the lingula. Continued annual CT surveillance is recommended. 2. Mild bronchial wall thickening, scattered mucous plugs within segmental and intra-segmental bronc hi of the lingula and right lower lobe, and centrilobular micro-nodular opacities and an area of subp leural consolidation in the lateral basal segment of the left lower lobe. These finding, in addition to the centrilobular and paraseptal emphysema, could represent manifestations of a smoking-related l patel disease. TECHNICAL DOCUMENTATION: JOB ID: [id number] Quality ID # 436: Final reports with documentation of one or more dose reduction techniques (e.g., Au tomated exposure control, adjustment of the mA and/or kV according to patient size, use of iterative reconstruction technique) 2010 [employer]- All Rights Reserved Reading location - IP/workstation name: [email or web address]
== END ==
LOC: RAD 08:04
PROVIDERS: ATTEND Internal Medicine
DX: R91.1 Solitary pulmonary nodule (principal); J98.4 Other disorders of lung
CPT/HCPCS: 71250

== ENCOUNTER → 2020-03-30 | Outpatient (CLI) | payer MEDICARE, OTHER ==
--- NOTE | 2020-03-30 16:04 | RADIOLOGY REPORT (SQ) ---
EXAM DESCRIPTION: CAROTID DOPPLER IMAGES COMPLETED DATE/TIME: 03/30/2020 3:47 pm REASON FOR STUDY: CAROTID STENOSIS/OCCLUSION LT I65.22 OCCLUSION AND STENOSIS OF LEFT CAROTID ARTER Y I73.9 PERIPHERAL VASCULAR DISEASE, UNSPECIFIED COMPARISON: None. TECHNIQUE: Grayscale ultrasound, Doppler velocity and spectra, and color Doppler images acquired of the extra-cranial carotid and vertebral arteries. Images stored on PACS. LIMITATIONS: None. FINDINGS: RIGHT CAROTID CCA Velocities: Within normal limits. ICA Velocities Peak systolic 0.94 m/s. End diastolic 0.36 m/s. Proximal ICA/CCA peak systolic ratio 1.6. Mild heterogeneous plaque proximal ICA. LEFT CAROTID CCA Velocities: Within normal limits. ICA Velocities Peak systolic 0.87 m/s. End diastolic 0.38 m/s. Proximal ICA/CCA peak systolic ratio 1.1. Mild heterogeneous plaque proximal ICA. VERTEBRAL ARTERIES: Antegrade flow. Normal waveforms. SUBCLAVIAN ARTERIES: Not imaged. OTHER: No other significant finding. IMPRESSION: NO HEMODYNAMICALLY SIGNIFICANT STENOSIS. COMMENT: Quality ID #195: Velocity criteria are extrapolated from the diameter data as defined by t he Society of Radiologists in Ultrasound Consensus Conference. Radiology 2003: 229; 340-346. TECHNICAL DOCUMENTATION: JOB ID: [id number] 2010 [employer]- All Rights Reserved Reading location - IP/workstation name: [email or web address]
--- NOTE | 2020-03-30 16:06 | RADIOLOGY REPORT (SQ) ---
EXAM DESCRIPTION: PHYSIO ARTERIAL LTD COMPLETE DATE/TIME: 03/30/2020 3:46 pm REASON FOR STUDY: PVD I65.22 OCCLUSION AND STENOSIS OF LEFT CAROTID ARTERY I73.9 PERIPHERAL VASCUL AR DISEASE, UNSPECIFIED FINDINGS: Please see combined report for performance of procedure and radiologic supervision and int erpretation. IMPRESSION: Please see combined report for performance of procedure and radiologic supervision and i nterpretation. Reading location - IP/workstation name: [email or web address]
--- NOTE | 2020-03-30 16:06 | RADIOLOGY REPORT (SQ) ---
EXAM DESCRIPTION: ARTERIAL LOWER EXTREM BILAT IMAGES COMPLETED DATE/TIME: 03/30/2020 3:46 pm REASON FOR STUDY: PVD I65.22 OCCLUSION AND STENOSIS OF LEFT CAROTID ARTERY I73.9 PERIPHERAL VASCUL AR DISEASE, UNSPECIFIED COMPARISON: None. TECHNIQUE: Dynamic and static vidal scale and color images acquired of the lower extremity arteries. Additional selected spectral images recorded. ABIs recorded. LIMITATIONS: None. FINDINGS: RIGHT LEG: ABIS: Normal, over 1.0. INFLOW ARTERIES: Normal, no obstruction evident. FEMORAL ARTERIES:Multiphasic waveforms. Normal, no velocity elevation to suggest focal stenosis. Norm al color Doppler evaluation. No aneurysm. POPLITEAL ARTERY:Multiphasic waveforms. Normal, no velocity elevation to suggest focal stenosis. Norm al color Doppler evaluation. No aneurysm. PATENT TIBIOPERONEAL TRUNK AND 3 VESSEL RUNOFF: Initial three-vessel runoff. Distal posterior tibial artery is occluded. Associated collaterals. TBI: Not performed. OTHER: No other significant finding. LEFT LEG: ABIS: Normal, over 1.0. INFLOW ARTERIES: Normal, no obstruction evident. FEMORAL ARTERIES:Multiphasic waveforms. Normal, no velocity elevation to suggest focal stenosis. Norm al color Doppler evaluation. No aneurysm. POPLITEAL ARTERY:Multiphasic waveforms. Normal, no velocity elevation to suggest focal stenosis. Norm al color Doppler evaluation. No aneurysm. PATENT TIBIOPERONEAL TRUNK AND 3 VESSEL RUNOFF: Initial three-vessel runoff. Distal posterior tibial artery is occluded. TBI: Not performed. OTHER: No other significant finding. IMPRESSION: Bilateral small vessel disease. No significant stenosis above the knee. COMMENT: [facility] NORMAL: Greater than 1.0 MINIMAL DISEASE: 0.9 to 1.0 CLAUDICATION: 0.5 to 0.9 SEVERE ARTERIAL DISEASE: Less than 0.5 [facility] NORMAL: Greater than 1.0 (1.2 If Heavy Calcifications) NORMAL TO MILD ISCHEMIA: 0.8 to 1.0 MODERATE ISCHEMIA: 0.4 to 0.8 SEVERE ISCHEMIA: Less than 0.4 TECHNICAL DOCUMENTATION: JOB ID: [id number] [employer]- All Rights Reserved Reading location - IP/workstation name: [email or web address]
== END ==
LOC: SP 12:50
PROVIDERS: ATTEND Family Medicine
DX: I73.9 Peripheral vascular disease, unspecified (principal); I63.22 Cerebral infarction due to unspecified occlusion or stenosis of basilar artery; Z72.0 Tobacco use
CPT/HCPCS: 93880; 93922; 93925

== ENCOUNTER → 2020-04-20 | Outpatient (CLI) | payer MEDICARE, OTHER ==
--- NOTE | 2020-04-20 14:53 | WOMENS IMAGING REPORT ---
EXAM DESCRIPTION: 3D SCREENING MAMMO BILAT IMAGES COMPLETED DATE/TIME: 04/20/2020 1:59 pm REASON FOR STUDY: Z12.31 SCREENING MAMMO I65.22 OCCLUSION AND STENOSIS OF LEFT CAROTID ARTERY Z12.3 1 ENCNTR SCREEN MAMMOGRAM FOR MALIGNANT NEOPLASM OF NISREEN Z13.6 ENCOUNTER FOR SCREENING FOR CARDIOVAS CULAR DISORDERS COMPARISON: 03/09/2019 and 01/12/2018. EXAM PARAMETERS: Views: Standard craniocaudal and mediolateral oblique views of each breast recorded using digital acquisition and breast tomosynthesis. Read with the assistance of CAD. .[facility] - [employer] Consultant Version 9.2 LIMITATIONS: None. FINDINGS: No suspicious masses, suspicious calcifications or architectural distortion. No areas of c oncern. IMPRESSION: NEGATIVE MAMMOGRAM. BIRADS 1. BREAST DENSITY: a. The breasts are almost entirely fatty. BIRAD: ASSESSMENT: 1 NEGATIVE RECOMMENDATION: ROUTINE SCREENING COMMENT: The patient has been notified of the results by letter per SA requirements. Additional no tification policies are in place for contacting patient with suspicious or incomplete findings. Quality ID #225: The [employer] recommends an annual screening mammogram for women aged 40 years or over. This facility utilizes a reminder system to ensure that all patients receive reminder letters, and/or direct phone calls for appointments. This includes reminders for routine scr eening mammograms, diagnostic mammograms, or other Breast Imaging Interventions when appropriate. Th is patient will be placed in the appropriate reminder system. TECHNICAL DOCUMENTATION: FINDING NUMBER: (1) ASSESSMENT: (1) JOB ID: [id number] 2010 [email or web address]- All Rights Reserved Reading location - IP/workstation name: [email or web address]
--- NOTE | 2020-04-20 15:10 | WOMENS IMAGING REPORT ---
EXAM DESCRIPTION: U/S ABDOMINAL AORTA SCREENING IMAGES COMPLETED DATE/TIME: 04/20/2020 1:57 pm REASON FOR STUDY: Z13.6 SCREENING I65.22 OCCLUSION AND STENOSIS OF LEFT CAROTID ARTERY Z12.31 ENCN TR SCREEN MAMMOGRAM FOR MALIGNANT NEOPLASM OF NISREEN Z13.6 ENCOUNTER FOR SCREENING FOR CARDIOVASCULAR D ISORDERS COMPARISON: 12/27/2015. TECHNIQUE: Static and dynamic grayscale images acquired of the aorta and stored on PACs. Selected co fouzia Doppler and spectral images recorded. LIMITATIONS: None. FINDINGS: AORTIC CALIBER MAXIMAL PROXIMAL: 2.0 cm. MID: 3.5 cm. DISTAL: 2.3 cm. ILIAC DIAMETER Iliac arteries not visualized . OTHER: No other significant finding. IMPRESSION: 3.5 Cm Abdominal Aortic Aneurysm. COMMENT: Aortic aneurysm imaging followup: 3.5-3.9 cm Every 12 months *Based upon the Society for Vascular Surgery Guidelines: J Vasc Surg. 2009 Oct;50(4 Suppl):S2-49 *For aortas of maximum diameter of 2.6-2.9 cm meeting the criteria for AAA (?1.5 x proximal normal se gment) TECHNICAL DOCUMENTATION: JOB ID: [id number] 2010 [employer]- All Rights Reserved Reading location - IP/workstation name: [email or web address]
== END ==
LOC: WI 12:40
PROVIDERS: ATTEND Family Medicine
DX: Z12.31 Encounter for screening mammogram for malignant neoplasm of breast (principal); Z13.6 Encounter for screening for cardiovascular disorders; F17.210 Nicotine dependence, cigarettes, uncomplicated; I71.4 Abdominal aortic aneurysm, without rupture
CPT/HCPCS: 76706; 77063; 77067

== ENCOUNTER → 2020-04-25 | Outpatient (CLI) | payer MEDICARE, OTHER ==
--- NOTE | 2020-04-25 11:01 | RADIOLOGY REPORT (SQ) ---
EXAM DESCRIPTION: CT BONE LENGTH IMAGES COMPLETED DATE/TIME: 04/25/2020 10:17 am REASON FOR STUDY: LLD (Q72.819) Q72.819 CONGENITAL SHORTENING OF UNSPECIFIED LOWER LIMB COMPARISON: None. TECHNIQUE: CT scanogram of the bilateral lower extremities is performed including pelvis to ankles. Measurements of femur, tibia, and entire lower extremities performed by the radiologist and saved to PACS. All CT scanners at this facility use dose modulation, iterative reconstruction, and/or weight based d osing when appropriate to reduce radiation dose to as low as reasonably achievable (ALARA). [facility]: Dose Right [facility]: CareDose [facility]: Dose Right [facility]: Teradose 4D [facility]: [employer] RADIATION DOSE: mGy. LIMITATIONS: None. FINDINGS: RIGHT: FEMUR: 39.5 cm. TIBIA: 30.8 cm. TOTAL RIGHT LOWER EXTREMITY LENGTH: 70.8 cm. LEFT: FEMUR: 39.3 cm. TIBIA: 31.1 cm. TOTAL LEFT LOWER EXTREMITY LENGTH: 70.8 cm. IMPRESSION: LEG LENGTH MEASUREMENTS DETAILED ABOVE. TECHNICAL DOCUMENTATION: JOB ID: [id number] Quality ID # 436: Final reports with documentation of one or more dose reduction techniques (e.g., Au tomated exposure control, adjustment of the mA and/or kV according to patient size, use of iterative reconstruction technique) 2010 [employer]- All Rights Reserved Reading location - IP/workstation name: [email or web address]
== END ==
LOC: RAD 10:04
PROVIDERS: ATTEND Podiatrist Foot & Ankle Surgery
DX: Q72.819 Congenital shortening of unspecified lower limb (principal)
CPT/HCPCS: 77073

== ENCOUNTER → 2020-05-01 | Outpatient (CLI) | payer MEDICARE, OTHER ==
[2020-05-01 08:58] LABS: ABSOLUTE BASOPHILS # (AUTO) 0.1 10^3/uL (0.0-0.2); ABSOLUTE EOSINOPHILS # (AUTO) 0.1 10^3/uL (0.0-0.6); ABSOLUTE LYMPHOCYTES (AUTO) 3.3 10^3/uL (0.5-4.7); ABSOLUTE MONOCYTES (AUTO) 0.8 10^3/uL (0.1-1.4); ABSOLUTE NEUT (AUTO) 4.9 10^3/uL (1.7-8.2); BASOPHILS % (AUTO) 0.9 % (0-2); EOSINOPHILS % (AUTO) 1.3 % (0-6); HEMATOCRIT 43.2 % (36.0-47.0); LYMPHOCYTES % (AUTO) 35.6 % (13-45); MEAN CORPUSCULAR HEMOGLOBIN 30.2 pg (27.0-33.4); MEAN CORPUSCULAR HGB CONC 34.7 g/dL (32.0-36.0); MEAN CORPUSCULAR VOLUME 87 fl (80-97); MONOCYTES % (AUTO) 8.3 % (3-13); PLATELET COUNT 254 10^3/uL (150-450); RED BLOOD COUNT 4.96 10^6/uL (3.72-5.28); SEGMENTED NEUTROPHILS % (AUTO) 53.9 % (42-78); TOTAL CELLS COUNTED % (AUTO) 100 %; WHITE BLOOD COUNT 9.2 10^3/uL (4.0-10.5)
[2020-05-01 09:13] LABS: ALBUMIN 4.3 g/dL (3.5-5.0); ALKALINE PHOSPHATASE 71 U/L (38-126); ANION GAP 7 (5-19); ASPARTATE AMINO TRANSFERASE 23 U/L (14-36); BILIRUBIN,TOTAL 0.4 mg/dL (0.2-1.3); BLOOD UREA NITROGEN 15 mg/dL (7-20); CALCIUM 9.8 mg/dL (8.4-10.2); CARBON DIOXIDE 30 mmol/L (22-30); CHLORIDE 102 mmol/L (98-107); CHOLESTEROL 150.91 mg/dL (0-200); GLUCOSE 111 mg/dL (75-110); POTASSIUM 4.3 mmol/L (3.6-5.0); TOTAL PROTEIN 7.5 g/dL (6.3-8.2); TRIGLYCERIDES 207 mg/dL (<150)
[2020-05-01 09:19] LABS: URINE AMPHETAMINES SCREEN NEGATIVE; URINE BARBITURATES SCREEN NEGATIVE; URINE BENZODIAZEPINES SCREEN NEGATIVE; URINE COCAINE SCREEN NEGATIVE; URINE MARIJUANA (THC) SCREEN NEGATIVE; URINE METHADONE SCREEN NEGATIVE; URINE PHENCYCLIDINE SCREEN NEGATIVE
--- NOTE | 2020-05-01 09:20 | RADIOLOGY REPORT (SQ) ---
EXAM DESCRIPTION: LUMBAR SPINE COMPLETE IMAGES COMPLETED DATE/TIME: 05/01/2020 7:52 am REASON FOR STUDY: LBP Z13.6 ENCOUNTER FOR SCREENING FOR CARDIOVASCULAR DISORDERS K21.0 GASTRO-ESOP HAGEAL REFLUX DISEASE WITH ESOPHAGITIS R73.9 HYPERGLYCEMIA, UNSPECIFIED COMPARISON: None. NUMBER OF VIEWS: Five views including obliques. TECHNIQUE: AP, lateral, oblique, and sacral radiographic images acquired of the lumbar spine. LIMITATIONS: None. FINDINGS: MINERALIZATION: Normal. SEGMENTATION: Normal. No transitional anatomy. ALIGNMENT: Normal. VERTEBRAE: Maintained height. No fracture or worrisome bone lesion. DISCS: Multilevel disc space narrowing, more pronounced at L4-5 and L5-S1 with small anterior osteop hytes. POSTERIOR ELEMENTS: Lower lumbar spine facet arthrosis. Pedicles are intact. No pars defect or pos terior arch defects. HARDWARE: None in the spine. PARASPINAL SOFT TISSUES: Normal. PELVIS: Intact as visualized. No fractures or worrisome bone lesions. SI joints intact. OTHER: Atherosclerotic changes involving the abdominal aorta. The patient has a known abdominal aor tic aneurysm. Please see abdominal aorta ultrasound report dated 04/20/2020. IMPRESSION: 1. Degenerative disc disease, particularly involving the L4-5 and L5-S1 disc spaces. L ower lumbar spine facet arthrosis. 2. Additional findings as above. TECHNICAL DOCUMENTATION: JOB ID: [id number] [employer]- All Rights Reserved Reading location - IP/workstation name: [email or web address]
[2020-05-01 09:24] LABS: DIRECT LDL 88 mg/dL (<100)
[2020-05-01 09:27] LABS: FREE T3 3.91 pg/mL (2.77-5.27); FREE T4 (FREE THYROXINE) 0.83 ng/dL (0.78-2.19); VLDL CHOLESTEROL 41.4 mg/dL (10-31)
[2020-05-01 09:40] LABS: THYROID STIMULATING HORMONE 11.7 uIU/mL (0.47-4.68)
== END ==
LOC: OD 07:10
PROVIDERS: ATTEND Family Medicine
DX: M51.37 Other intervertebral disc degeneration, lumbosacral region (principal); M47.896 Other spondylosis, lumbar region; M54.5 Low back pain; E03.9 Hypothyroidism, unspecified; E55.9 Vitamin D deficiency, unspecified; Z13.1 Encounter for screening for diabetes mellitus; Z13.6 Encounter for screening for cardiovascular disorders; K21.0 Gastro-esophageal reflux disease with esophagitis; R73.9 Hyperglycemia, unspecified; G89.4 Chronic pain syndrome
CPT/HCPCS: 36415; 84439; 84443; 85025; 80053; 80307; 84481; 83036; 82306; 80061; 72110; G0480; 80361

== ENCOUNTER → 2020-11-22 | Outpatient (CLI) | payer MEDICARE, OTHER ==
--- NOTE | 2020-11-22 08:18 | RADIOLOGY REPORT (SQ) ---
EXAM DESCRIPTION: T SPINE AP/LAT IMAGES COMPLETED DATE/TIME: 11/22/2020 8:09 am REASON FOR STUDY: DORSALGIA, UNSPEC I71.4 ABDOMINAL AORTIC ANEURYSM, WITHOUT RUPTURE COMPARISON: None. NUMBER OF VIEWS: Two views. TECHNIQUE: AP and lateral radiographic images acquired of the thoracic spine. LIMITATIONS: None. FINDINGS: MINERALIZATION: Normal. ALIGNMENT: Normal. No scoliosis. VERTEBRAE: No fracture or bone lesion. Maintained height, normal segmentation. DISCS: Multilevel disc space narrowing with osteophytes. HARDWARE: None in the spine. MEDIASTINUM AND SOFT TISSUES: Normal heart size and aortic contour. No soft tissue abnormality. VISUALIZED LUNG DAMON: Clear. OTHER: No other significant finding. IMPRESSION: SPONDYLOSIS WITHOUT BONE LESION OR FRACTURE. TECHNICAL DOCUMENTATION: JOB ID: [id number] 2010 [employer]- All Rights Reserved Reading location - IP/workstation name: [email or web address]
--- NOTE | 2020-11-22 09:09 | RADIOLOGY REPORT (SQ) ---
EXAM DESCRIPTION: /S RETROPERITON LTD IMAGES COMPLETED DATE/TIME: 11/22/2020 8:33 am REASON FOR STUDY: I71.4 ABDOMINAL AORTIC ANEURYSM, WITHOUT RUPTURE I71.4 ABDOMINAL AORTIC ANEURYSM, WITHOUT RUPTURE COMPARISON: 04/20/2020 TECHNIQUE: Static and dynamic grayscale images acquired of the aorta and stored on PACs. Selected co fouzia Doppler and spectral images recorded. LIMITATIONS: None. FINDINGS: AORTIC CALIBER MAXIMAL PROXIMAL: 2.4 x 2.4 x 1.9 cm. MID: 1.9 x 1.8 x 1.8 cm. DISTAL: 2.5 x 2.8 x 2.7 cm. ILIAC DIAMETER RIGHT: 0.9 x 0.6 cm. LEFT: 0.8 x 0.5 cm. OTHER: No other significant finding. IMPRESSION: Sac size appears slightly smaller compared to prior ultrasound. This most likely is due to slight difference in sampling. Recommend CT for further assessment. COMMENT: Aortic aneurysm imaging followup: 3.0-3.4 cm Recommended followup every 3 years. *Based upon the ACR White Paper in the J Am Luis Antonio Radiol 2013;10 (10):789-794. *For aortas of maximum diameter of 2.6-2.9 cm meeting the criteria for AAA (?1.5 x proximal normal se gment) TECHNICAL DOCUMENTATION: JOB ID: [id number] [employer]- All Rights Reserved Reading location - IP/workstation name: [email or web address]
== END ==
LOC: RAD 07:57
PROVIDERS: ATTEND Family Medicine
DX: I71.4 Abdominal aortic aneurysm, without rupture (principal); M47.814 Spondylosis without myelopathy or radiculopathy, thoracic region
CPT/HCPCS: 72070; 76775